=== PATIENT | female | born 1990 | race Caucasian/White ===

== ENCOUNTER 2022-10-15 15:29 | Outpatient (CLI) | payer MEDICAID, SELFPAY ==
[2022-10-15 16:24] LABS: hCG Titer Quant., Serum 72 mIU/mL (1-3)
== END 2022-10-15 23:59 | disposition home or self-care (01) ==
PROVIDERS: PCP Family Medicine; Referring Provider Obstetrics & Gynecology; Visit Provider Obstetrics & Gynecology
DX: O26.859 Spotting complicating pregnancy, unspecified trimester (principal)
CPT/HCPCS: 36415; 84702; 86850; 86900; 86901

== ENCOUNTER 2022-10-17 15:30 | Outpatient (CLI) | payer MEDICAID, SELFPAY ==
[2022-10-17 17:03] LABS: hCG Titer Quant., Serum 246 mIU/mL (1-3)
== END 2022-10-17 23:59 | disposition home or self-care (01) ==
LOC: LAB 15:31
PROVIDERS: PCP Family Medicine; Visit Provider Obstetrics & Gynecology
DX: O26.859 Spotting complicating pregnancy, unspecified trimester (principal)
CPT/HCPCS: 36415; 84702

== ENCOUNTER 2022-10-28 09:22 | Emergency (ER) | payer MEDICAID, SELFPAY ==
[2022-10-28 09:26] VITALS: BP 155/86; PULSE 101; RESP 16; TEMP 36.2; O2SAT 100; BMI 52.7
--- NOTE | 2022-10-28 10:29 | EDS_ITS ---
HPI History of Present Illness Chief Complaint: Eye Problem Informant: patient Onset/Context/Timing Location: Left Eye Onset: Yesterday Context: Sudden Onset Timing: Continuous Worsened by: Nothing Relieved by: Nothing Associated Symptoms Associated Symptoms - Eyes: Negative for Burning, Crusting, Drainage, Eyelid swelling, Foreign body sensation, Itching, Matting, Pain, Photophobia or Redness History of injury: No Visual correction: Corrective contact lenses Narrative Narrative: Patient presents with a dilated left pupil that began last night. Patient states her noticed it last night. Patient states that her noticed that her pupil was dilating and chuckie in a pulsating manner. Patient admits to some blurred vision out of her left eye. Patient denies any trauma or foreign body. Patient admits to some dizziness and mild shortness of breath. Patient states nothing makes her symptoms better nothing makes them worse. Patient admits to some nausea but denies any vomiting. Patient states she is but does not know how far along she is. Patient also admits to some urinary frequency and mild headache. PFSH PFS Medical History Exercise-induced asthma Home Medications cephalexin 500 mg capsule 500 mg PO Q6 #12 CAPSULES 10/28/22 [Rx Last Taken Unknown] Allergy/AdvReac Type Severity Reaction Status Date / Time Sulfa (Sulfonamide Allergy Other Verified 10/28/22 09:26 Antibiotics) amoxicillin [From Augmentin] AdvReac Vomiting Verified 10/28/22 09:26 clavulanic acid AdvReac Vomiting Verified 10/28/22 09:26 [From Augmentin] nitrofurantoin AdvReac Vomiting Verified 10/28/22 09:26 [From Macrobid] Family History (Updated 10/25/22 @ 13:44 by Radha Jain) Mother Bleeding disorder lupus anticoagulation Other CAD (coronary artery disease) Surgical History History of tonsillectomy Hx of cholecystectomy Social History adopted: No housing: house number of children: 1 current occupational status: unemployed current occupation: [employer] current occupational exposures/hazards: 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 Smoking Status: Never smoker second hand exposure: Yes alcohol intake: never substance use type: does not use what type of physical activity do you participate in: none seatbelt use: always do you feel safe at home: Yes ROS ROS ED Constitutional Constitutional ED: Denies chills or fever(s) Eyes Eyes: Reports blurry vision left; Denies change in vision ENT ENT ED: Denies rhinorrhea or sore throat Cardiovascular Cardiovascular: Denies chest pain or palpitations Respiratory/Chest Respiratory/Chest: Reports dyspnea; Denies cough Gastrointestinal Gastrointestinal: Reports nausea; Denies vomiting Genitourinary Genitourinary ED: Reports urinary frequency; Denies dysuria or hematuria Musculoskeletal Musculoskeletal: Denies back pain or neck pain Integumentary Denies abscess or rash Neurologic Neurologic: Reports headache(s); Denies weakness Allergic/Immunologic Allergic/Immunologic ED: Denies mouth swelling or urticaria EXAM Physical Exam Const Vital Signs: 10/28/22 09:26 10/28/22 09:39 Temperature 97.1 F L Temperature Source Temporal Pulse Rate 101 H Respiratory Rate 16 Respiratory Effort Normal Non-Labored Respiratory Pattern Normal Blood Pressure 155/86 H Blood Pressure Mean 109 Pulse Ox 100 Oxygen Delivery Method Room Air Positive well nourished, well developed and obese General Appearance ED: well developed and NAD Nutritional Appearance: obese HEENT Reports moist mucous membranes Eyes Eyes Narrative: Pupils are equal, round, and reactive to light bilaterally. Extraocular muscles are intact. Funduscopic examination was benign. There are no foreign bodies visualized. Conjunctiva was clear. Neck supple and no JVD Resp normal respiratory effort and clear to auscultation bilaterally Cardio regular rate, regular rhythm and no murmurs GI normal to inspection, nondistended, normoactive bowel sounds and non-tender Palpation: soft Extremity normal to inspection General Extremety ED: Negative for edema or tenderness General Extremity: Negative for edema Neuro oriented x3, CN's II-XII intact bilaterally and no sensory deficits noted Sensorium / Orientation: alert Motor Exam: strength 5/5 throughout Psych mental status grossly normal Skin no rashes or lesions noted MDM MDM MDM Narrative Medical decision making narrative: Patient was given IV fluids here. PA and lateral chest x-ray was obtained. There are 2 views. On my interpretation, lung romero are clear. There is normal cardiac silhouette. Bony thorax is normal. There is no acute process noted. Radiologist also interpreted the x-ray and agrees. CBC shows a mild anemia with a hemoglobin of 11.2 and hematocrit of 35.6. Comprehensive metabolic profile was essentially within normal limits. Urinalysis showed a leukocyte esterases of 500 with 10-25 white blood cells and 3+ bacteria. Urine culture was performed. Patient was given a dose of Keflex here. Patient was given a prescription for Keflex. Patient was instructed to follow-up with her TUTOR COORDINATOR in 3 to 5 days. Patient was also instructed to follow-up with her primary care physician in 5 to 7 days. Patient understood and was agreeable with the plan. All questions were answered. Discharge Plan Triage Chief Complaint: Eye Problem ED Provider: Calvin Gardner Dx/Rx/DC Orders Clinical Impression: Visual disturbance, , Urinary tract infection Instructions: ED Cystitis Female Adult, ED Established ... Prescriptions: New cephalexin [cephalexin] 500 mg capsule 500 mg PO Q6 Qty: 12 0RF Primary Care Provider: Roosevelt Knight Referrals: Roosevelt Knight MD [Primary Care Provider] - 3-5 Days Kelley Huston MD [Med Staff - Active Staff] - 3-5 Days Disposition Disposition: Home, Self Care
--- NOTE | 2022-10-28 10:34 | RAD_ITS ---
INDICATION: Dyspnea -- Shield abdomen EXAMINATION/TECHNIQUE: X-RAY - XR Chest 2 Views COMPARISON: None. FINDINGS: LINES/DEVICES: None. LUNGS: No consolidation, edema or effusion. No pneumothorax. MEDIASTINUM AND CARDIOVASCULAR STRUCTURES: Cardiac silhouette not enlarged. Central airways and mediastinal contour are unremarkable. BONES AND SOFT TISSUES: Unremarkable. RAD/Chest PA and Lateral IMPRESSION: No radiographic evidence of acute cardiopulmonary disease. Electronically Signed: Xin Campbell MD at 11:03 EST ,
[2022-10-28 11:00] LABS: Absolute Neutrophil Count 7.4 X10^3/uL (2.0-7.7); Basophil# 0.03 X10^3/uL; Basophil% 0.3 % (0-1); Eosinophil# 0.12 X10^3/uL; Eosinophils% 1.3 % (0-5); Hematocrit 35.6 % (37-47); Hemoglobin 11.2 g/dL (12.0-15.0); Lymphocyte % 16.7 % (19-41); Mean Corp Hgb Conc 31.5 g/dL (32-36); Mean Corpuscular Hgb 26.3 pg (27.0-32.0); Mean Corpuscular Volume 83.6 fL (81-99); Mean Platelet Vol. 10.9 fl (6.2-12.0); Monocyte# 0.42 X10^3/uL; Monocyte% 4.4 % (0-10); NRBC Flagged by Analyzer 0 % (0-5); Neutrophil # 7.39 X10^3/uL (2.7-7.7); Neutrophil % 77.1 % (47-70); Platelet Count 266 K/mm3 (150-450); RBC Distribution Width CV 14.9 % (11.6-14.6); RBC Distribution Width SD 45.1 fl (35.1-43.9); Red Blood Count 4.26 M/mm3 (4.2-5.4); White Blood Count 9.6 K/mm3 (4.4-11.0)
[2022-10-28 11:12] LABS: ALB/GLOB Ratio 0.8 RATIO (0.9-2.4); AST(SGOT) 15 U/L (15-37); Alanine Aminotransfer ALT/SGPT 25 U/L (13-56); Alkaline Phosphatase 68 U/L (45-117); Anion Gap 7 (5-15); BUN 8 mg/dL (7-18); BUN/Creat Ratio 11.9 RATIO (10-20); Calcium,Total 8.6 mg/dL (8.5-10.1); Chloride 106 mmol/L (98-107); Creatinine, Serum 0.67 mg/dL (0.55-1.02); EST Glomerular Filtration Rate 109 mL/min (>60); Est Glom Filt Rate - Afr Amer 131 mL/min (>60); Estimated Creatinine Clearance 109.47 ml/min; Glucose 137 mg/dL (74-106); Potassium 3.9 mmol/L (3.5-5.1); Sodium Level 138 mmol/L (136-145)
[2022-10-28 11:51] LABS: Mucous, Urine 0 SEEN /hpf (<or=2+); Red Blood Cells-Urine 0 SEEN /hpf (0-5)
[2022-10-28 11:55] LABS: Color, Urine Yellow (Yellow); Glucose, Dipstick Normal (Normal); Ketone-Dipstick 5 mg/dl (Negative); Leukocyte Esterase-Dipstick 500 /ul (Negative); Nitrite-Dipstick Negative (Negative); Occult Blood-Urine 10 /ul (Negative); Protein-Dipstick Negative (Negative); Urine Bilirubin Dipstick Negative (Negative); Urine Clarity Sl. Cloudy (Clear); Urine Urobilinogen Normal (Normal)
[2022-10-28 12:24] LABS: Bacteria 3+ /hpf (None Seen); Squamous Epithelial Cells - UA 5-10 SEEN /hpf (5-10); White Blood Cells 10-25 SEEN /hpf (0-5)
[2022-10-28] MEDS: 0.9% Normal Saline 1,000 ML 1000 ML IV (12:33)
[2022-10-28 13:08] VITALS: BP 150/92; PULSE 94; RESP 18; O2SAT 100
[2022-10-28] MEDS: Cephalexin 250 MG Capsule 500 MG PO (13:10)
== END 2022-10-28 13:29 | disposition home or self-care (01) ==
PROVIDERS: Emergency Provider Emergency Medicine; PCP Family Medicine; Visit Provider Emergency Medicine
DX: O23.40 Unspecified infection of urinary tract in pregnancy, unspecified trimester (principal); R06.02 Shortness of breath; H53.9 Unspecified visual disturbance; R11.0 Nausea; R42 Dizziness and giddiness; Z97.3 Presence of spectacles and contact lenses; O99.210 Obesity complicating pregnancy, unspecified trimester; O99.891 Other specified diseases and conditions complicating pregnancy
CPT/HCPCS: 71046; 80053; 81001; 85025; 87086; 87088; 96360; 99284; J7030; A4216

== ENCOUNTER 2022-11-01 12:03 | Emergency (ER) | payer MEDICAID, SELFPAY ==
[2022-11-01 12:04] VITALS: BP 134/67; PULSE 94; RESP 18; TEMP 36.6; O2SAT 99; BMI 52.4
--- NOTE | 2022-11-01 12:58 | US_ITS ---
STUDY: FIRST TRIMESTER OBSTETRICAL ULTRASOUND REASON FOR EXAM: Female, 32 years old Vaginal Bleeding LMP: 09/06/2022. TECHNIQUE: Transabdominal and Transvaginal TECHNICAL QUALITY: Adequate. PRIOR ULTRASOUND: None. FINDINGS: There is visualization of a single gestational sac in a normal intrauterine position. The mean sac diameter (MSD) measures 1.41 cm, indicating an estimated gestational age (EGA) of 6 weeks, 2 days. The gestational sac shape is within normal limits. There is a visualized yolk sac. The yolk sac measures 3.8 mm. The placenta is non-visualized. There is visualization of a live embryo. The crown-rump length (CRL) measures 5.2 mm, indicating an estimated gestational age (EGA) of 6 weeks, 3 days. There is demonstrated cardiac activity with a heart rate of 123 bpm. The estimated gestation age (EGA) by LMP is 8 weeks, 0 days. The estimated date of delivery (SLY) by LMP is 06/13/2023. The estimated gestation age (EGA) by US is 6 weeks, 3 days. The estimated date of delivery (SLY) by US is 06/24/2023. The uterus measures 12.4 cm x 6.8 cm x 5.4 cm. There is a 1.8 cm x 2 cm x 1.5 cm uterine fibroid. The cervix is closed. The right ovary was not visualized. The left ovary measures 1.5 cm x 1.6 cm x 1.5 cm. There is no left ovarian cyst. There is no visualized left adnexal mass or complex lesion. There is no fluid in the cul de sac. US/Init OB < 14Wks US IMPRESSION: Single live intrauterine gestation with a mean gestational age of 6 weeks and 3. Small uterine fibroid. Electronically Signed: Ramu Gaemz MD at 14:06 EST ,
--- NOTE | 2022-11-01 12:59 | EDS_ITS ---
HPI HPI - Female History of Present Illness Chief Complaint: Vag Bld, Preg Narrative Narrative: 32-year-old female, G3, P1 at approximately 4 to 6 weeks gestation states that she had a blood test drawn around gi, few weeks ago which showed that she was possibly 2 to 3 weeks . This morning just after midnight she began having pelvic cramping and vaginal bleeding. While her vaginal bleeding has subsided and almost stopped, she presents because she wants to make sure that everything is okay down there. She does not have an appointment with an ENVIRONMENTAL HEALTH PHYSICIAN, Dr. Kelley Huston for few weeks. She states she has not had a confirmatory ultrasound. PFSH PFS Medical History Exercise-induced asthma Home Medications cephalexin 500 mg capsule 500 mg PO Q6 #12 CAPSULES 10/28/22 [Rx Last Taken Unknown] ondansetron 4 mg disintegrating tablet 4 mg PO Q4H PRN nausea and vomiting #60 tabs 10/31/22 [Rx Last Taken Unknown] Allergy/AdvReac Type Severity Reaction Status Date / Time Sulfa (Sulfonamide Allergy Other Verified 11/01/22 12:04 Antibiotics) amoxicillin [From Augmentin] AdvReac Vomiting Verified 11/01/22 12:04 clavulanic acid AdvReac Vomiting Verified 11/01/22 12:04 [From Augmentin] nitrofurantoin AdvReac Vomiting Verified 11/01/22 12:04 [From Macrobid] Family History Mother Bleeding disorder lupus anticoagulation Other CAD (coronary artery disease) Surgical History History of tonsillectomy Hx of cholecystectomy Social History adopted: No housing: house number of children: 1 current occupational status: unemployed current occupation: [employer] current occupational exposures/hazards: 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 HEENT: No sore throat. No neck pain. No loss of vision. No rhinorrhea. Cardiovascular: No chest pain. No palpitations. No pedal edema. Respiratory: No cough, no shortness of breath. Abdominal: No abdominal pain. No nausea. No vomiting. Genitourinary: No dysuria. No hematuria. Being treated for UTI, diagnosed Saturday. Positive vaginal bleeding-almost resolved. Positive pelvic cramping. Musculoskeletal: No myalgias. No arthralgias. Neurologic: No headaches. No dizziness. No lightheadedness. Skin: No rash. No change in color. Psychiatric: No depression. No anxiety. EXAM Physical Exam Narrative Exam Narrative: Afebrile. Vital signs noted. HEENT: Normocephalic. Atraumatic. PERRL, EOMI. Neck soft and supple. No point tenderness or step off. Cardiovascular: Regular rate and rhythm. No murmurs, rubs, or gallops appreciated. Respiratory: No tachypnea. Lungs clear to auscultation bilaterally. Gastrointestinal: Abdomen soft, nontender, with normoactive bowel sounds. No rebound or guarding. Neurological: Awake. Alert. Nonfocal, nonlateralizing. Skin: No rash. Normal color. No pallor. Musculoskeletal: No pedal edema. Full range of motion extremities. Const Vital Signs: 11/01/22 12:04 11/01/22 14:03 Temperature 97.8 F Temperature Source Temporal Pulse Rate 94 78 Respiratory Rate 18 16 Blood Pressure 134/67 H 134/78 H Blood Pressure Mean 89 96 Pulse Ox 99 98 Oxygen Delivery Method Room Air Room Air MDM MDM MDM Narrative Medical decision making narrative: Comprehensive work-up was pursued. I reviewed her chart. She has a positive of her blood type. Quantitative hCG is elevated 11,529. Hemoglobin slightly low at 11.5. Her ultrasound shows a single live intrauterine gestation with a mean gestational age of 6 weeks and 3 days. There is a small uterine fibroid. I was going to perform a pelvic examination, but patient deferred this, and she states that she only had a small amount of spotting when she wiped after she had a bowel movement, but states that she had wiped the front and is currently being treated for UTI. She did give a sample here that was not grossly bloody. At this point in time, given her normal ultrasound, she was still told that this could be a threatened miscarriage. She will follow-up with her ENVIRONMENTAL HEALTH PHYSICIAN Dr. Kelley Huston as scheduled. She will continue vitamins. She will finish off her antibiotics that she received on Saturday. Disposition is discharged home in stable condition. Return instructions were reviewed. Lab Data Attestation: I reviewed the patient's lab results. Labs: Laboratory Results - last 24 hr 11/01/22 11/01/22 12:45 12:45 WBC 9.6 RBC 4.18 L Hgb 11.5 L Hct 35.4 L MCV 84.7 MCH 27.5 MCHC 32.5 RDW Std Deviation 44.9 H RDW Coeff of Shana 14.6 Plt Count 286 MPV 11.7 Immature Gran % (Auto) 0.200 Neut % (Auto) 75.8 H Lymph % (Auto) 17.9 L [place] % (Auto) 5.3 Eos % (Auto) 0.7 Baso % (Auto) 0.1 Absolute Neuts (auto) 7.3 Absolute Lymphs (auto) 1.72 Nucleated RBC % 0 HCG, Quant [id number] H Radiography Diagnostic Testing: Clinical Impression(s) from Imaging Studies Obstetrics Ultrasound 11/01/22 12:58 IMPRESSION: Single live intrauterine gestation with a mean gestational age of 6 weeks and 3. Small uterine fibroid. Electronically Signed: Ramu Gamez MD at 14:06 EST Reading Location ID and State: [address] [place] [address] , Service support , Discharge Plan Triage Chief Complaint: Vag Bld, Preg ED Provider: Darryn Joaquin Dx/Rx/DC Orders Clinical Impression: , Threatened miscarriage Instructions: ED Possible Miscarriage ..., ED Established ... Prescriptions: No Action cephalexin [cephalexin] 500 mg capsule 500 mg PO Q6 Qty: 12 0RF ondansetron 4 mg tablet,disintegrating 4 mg PO Q4H PRN (Reason: nausea and vomiting) Qty: 60 2RF Primary Care Provider: Roosevelt Knight Referrals: Roosevelt Knight MD [Primary Care Provider] - Kelley Huston MD [Med Staff - Active Staff] - Keep Art appointment Disposition Disposition: Home, Self Care
[2022-11-01 13:24] LABS: Absolute Lymphocyte Count 1.72 X10^3/uL (0.83-4.51); Absolute Neutrophil Count 7.3 X10^3/uL (2.0-7.7); Basophil# 0.01 X10^3/uL; Basophil% 0.1 % (0-1); Eosinophil# 0.07 X10^3/uL; Eosinophils% 0.7 % (0-5); Hematocrit 35.4 % (37-47); Hemoglobin 11.5 g/dL (12.0-15.0); Lymphocyte # 1.72 X10^3/ul (0.83-4.51); Lymphocyte % 17.9 % (19-41); Mean Corp Hgb Conc 32.5 g/dL (32-36); Mean Corpuscular Hgb 27.5 pg (27.0-32.0); Mean Corpuscular Volume 84.7 fL (81-99); Mean Platelet Vol. 11.7 fl (6.2-12.0); Monocyte# 0.51 X10^3/uL; Monocyte% 5.3 % (0-10); NRBC Flagged by Analyzer 0 % (0-5); Neutrophil # 7.26 X10^3/uL (2.7-7.7); Neutrophil % 75.8 % (47-70); Platelet Count 286 K/mm3 (150-450); RBC Distribution Width CV 14.6 % (11.6-14.6); RBC Distribution Width SD 44.9 fl (35.1-43.9); Red Blood Count 4.18 M/mm3 (4.2-5.4); White Blood Count 9.6 K/mm3 (4.4-11.0)
[2022-11-01 14:03] VITALS: BP 134/78; PULSE 78; RESP 16; O2SAT 98
[2022-11-01 14:12] LABS: hCG Titer Quant., Serum 11529 mIU/mL (1-3)
[2022-11-01 15:03] VITALS: BP 128/64; PULSE 72; RESP 16; TEMP 36.6; O2SAT 100
== END 2022-11-01 15:11 | disposition home or self-care (01) ==
PROVIDERS: Emergency Provider Emergency Medicine; PCP Family Medicine; Visit Provider Emergency Medicine
DX: O20.0 Threatened abortion (principal); O99.891 Other specified diseases and conditions complicating pregnancy; O34.11 Maternal care for benign tumor of corpus uteri, first trimester; D25.9 Leiomyoma of uterus, unspecified; Z3A.01 Less than 8 weeks gestation of pregnancy
CPT/HCPCS: 76801; 84702; 85025; 99285; A4216

== ENCOUNTER → 2022-11-09 | Outpatient (CLI) | payer MEDICAID, SELFPAY ==
[2022-11-13 03:06] LABS: Chlamydia By Nucleic Acid AMP Negative (Negative)
[2022-11-13 12:45] LABS: Gonococcus By Nucleic Acid AMP Negative (Negative)
== END | disposition home or self-care (01) ==
PROVIDERS: PCP Family Medicine; Visit Provider Obstetrics & Gynecology
DX: Z34.90 Encounter for supervision of normal pregnancy, unspecified, unspecified trimester (principal)
CPT/HCPCS: 87086; 87088; 87491; 87591

== ENCOUNTER → 2022-12-05 | Outpatient (CLI) | payer MEDICAID, SELFPAY ==
--- NOTE | 2022-12-05 13:00 | US_ITS ---
INDICATION: viability -- HX OF PREVIOUS ED VISIT WITH UTI AND VAG BLEEDING- NO CURRENT BLEEDING EXAMINATION: Ultrasound US OB Transvaginal TECHNIQUE: Transabdominal pelvic ultrasound was performed. Grayscale, spectral waveform, and color flow Doppler evaluation of the adnexa. COMPARISON: None. LMP: [Unknown Beta-hCG: Unknown FINDINGS: UTERUS: 13.1 x 9.9 x 7.9 cm. Small fibroid measuring 1.8 x 1.6 x 1.2 cm. Probable small subchorionic bleed measuring 1.6 x 1.4 x 2.6 cm. RIGHT OVARY: 2.9 x 2.7 x 2 cm. Normal. LEFT OVARY: 3.2 x 2.6 x 2.9 cm. Cyst measuring 1.8 x 1.7 x 1.5 cm is likely corpus luteum. FREE FLUID: None. INTRAUTERINE GESTATIONAL SAC(s) (size/shape): Single. Size (Mean sac diameter) and shape. YOLK SAC: Identified POLE: Identified CRL 4.9 cm. ESTIMATED GESTATION AGE: 11 weeks 4 days. HEART MOTION: 165 bpm. PLACENTA: Posterior. US/Transvaginal w/Preg US IMPRESSION: Viable intrauterine gestation approximately 11 weeks 4 days gestational age with probable small subchorionic hemorrhage. Incidental finding of small intrauterine fibroid Small left ovarian cyst likely corpus luteum.. Electronically Signed: Winston Wu MD at 17:40 EST ,
== END | disposition home or self-care (01) ==
PROVIDERS: PCP Family Medicine; Referring Provider Obstetrics & Gynecology; Visit Provider Obstetrics & Gynecology
DX: Z34.81 Encounter for supervision of other normal pregnancy, first trimester (principal); Z3A.11 11 weeks gestation of pregnancy; Z31.430 Encounter of female for testing for genetic disease carrier status for procreative management
CPT/HCPCS: 76817

== ENCOUNTER 2022-12-07 10:41 | Outpatient (CLI) | payer MEDICAID, SELFPAY ==
[2022-12-07 11:15] LABS: Absolute Lymphocyte Count 1.63 X10^3/uL (0.83-4.51); Absolute Neutrophil Count 7.3 X10^3/uL (2.0-7.7); Basophil# 0.01 X10^3/uL; Basophil% 0.1 % (0-1); Eosinophil# 0.04 X10^3/uL; Eosinophils% 0.4 % (0-5); Hematocrit 35.2 % (37-47); Hemoglobin 11.1 g/dL (12.0-15.0); Lymphocyte # 1.63 X10^3/ul (0.83-4.51); Lymphocyte % 17.4 % (19-41); Mean Corp Hgb Conc 31.5 g/dL (32-36); Mean Corpuscular Hgb 26.2 pg (27.0-32.0); Mean Corpuscular Volume 83.2 fL (81-99); Monocyte# 0.33 X10^3/uL; Monocyte% 3.5 % (0-10); NRBC Flagged by Analyzer 0 % (0-5); Neutrophil # 7.31 X10^3/uL (2.7-7.7); Neutrophil % 78.2 % (47-70); Platelet Count 316 K/mm3 (150-450); RBC Distribution Width SD 42.6 fl (35.1-43.9); Red Blood Count 4.23 M/mm3 (4.2-5.4); White Blood Count 9.4 K/mm3 (4.4-11.0)
[2022-12-07 11:41] LABS: Glucose Challenge Gest 1H 50g 181 mg/dL (70-140)
[2022-12-07 11:48] LABS: NATERA MAILED SPECIMEN
[2022-12-07 12:24] LABS: HIV - WCH Non-Reactive (Nonreactive); Hepatitis B Surface Antigen Non-Reactive (Nonreactive); Hepatitis C Antibody Non-Reactive (Nonreactive); Rubella IgG Reactive (Nonreactive); Syphilis Antibodies Non-reactive
== END 2022-12-07 23:59 | disposition home or self-care (01) ==
PROVIDERS: Obstetrics & Gynecology; PCP Family Medicine; Referring Provider Obstetrics & Gynecology; Visit Provider Obstetrics & Gynecology
DX: Z31.430 Encounter of female for testing for genetic disease carrier status for procreative management (principal); O99.210 Obesity complicating pregnancy, unspecified trimester; Z3A.00 Weeks of gestation of pregnancy not specified
CPT/HCPCS: 36415; 82950; 85025; 86703; 86762; 86780; 86803; 86850; 86900; 86901; 87340

== ENCOUNTER 2022-12-26 16:29 | Emergency (ER) | payer MEDICAID, SELFPAY ==
[2022-12-26 16:30] VITALS: BP 135/68; PULSE 106; RESP 16; TEMP 36.6; O2SAT 98; BMI 46.9
--- NOTE | 2022-12-26 16:55 | US_ITS ---
STUDY: SECOND AND THIRD TRIMESTER OBSTETRICAL ULTRASOUND - LIMITED REASON FOR EXAM: Female, 32 years old. vaginal bleeding PRIOR ULTRASOUND: 12.05.22. TECHNIQUE: Transvaginal TECHNICAL QUALITY: Adequate. FINDINGS: There is a single intrauterine fetus. The fetus is in a breech presentation. There is demonstrated cardiac activity with a heart rate of 166 bpm. There is a normal amniotic fluid volume. The largest amniotic fluid pocket measures 6.1 cm. The placenta is posterior with a marginal previa. There are Grade 0 placental changes. The cervix measures cm in length: 3.1. BIOMETRY: BPD: 28 mm: 15 weeks, 1 days HC: 106 mm: 15 weeks, 0 days AC: 82 mm: 14 weeks, 4 days FL: 15 mm: 14 weeks, 3 days CI: 84 FL/AC: 18.5 FL/BPD: 63 HC/AC: 1.3 age by current US: 14 weeks, 5 days. SLY by current US: 7.28.23. Estimated weight: 100 grams, +/- 15 grams, 32 %. Age by LMP: 14 weeks, 4 days. SLY by LMP: 7.29.23. US/OB Limited With Biometrics IMPRESSION: There is a single live intrauterine with a heart rate of 166 bpm. The placenta is posterior with a marginal previa. Electronically Signed: Jacques Villa MD at 18:35 EST ,
--- NOTE | 2022-12-26 16:56 | EDS_ITS ---
HPI HPI - Female History of Present Illness Chief Complaint: Vag Bld, Preg Narrative Narrative: 32-year-old female A1 currently about 14-1/2 weeks presenting with vaginal bleeding. She states has had this problem throughout her . She states her blood type is a positive. Patient was seen by her ANCILLARY SERVICES MANAGER THERAPY previously for this issue. Today she states she had some spotting and she has been little constipated so she was straining to have a bowel movement and noticed there was more blood in the toilet than it had been. She does admit to some pretty on and off spotting over the course of the last few weeks she states this started about 11 weeks. She does not think this was in her stool. [facility] Medical History Exercise-induced asthma Home Medications ondansetron 4 mg disintegrating tablet 4 mg PO Q4H PRN nausea and vomiting #60 tabs 12/07/22 [Rx Last Taken Unknown] blood sugar diagnostic (Blood Glucose Test strips) #50 ea 12/10/22 [Rx Last Taken Unknown] blood-glucose meter #1 ea 12/10/22 [Rx Last Taken Unknown] lancets #100 ea 12/10/22 [Rx Last Taken Unknown] cephalexin 500 mg capsule 500 mg PO Q12 #14 CAPSULES 12/26/22 [Rx Last Taken Unknown] Allergy/AdvReac Type Severity Reaction Status Date / Time Sulfa (Sulfonamide Allergy Other Verified 12/26/22 16:30 Antibiotics) amoxicillin [From Augmentin] AdvReac Vomiting Verified 12/26/22 16:30 clavulanic acid AdvReac Vomiting Verified 12/26/22 16:30 [From Augmentin] nitrofurantoin AdvReac Vomiting Verified 12/26/22 16:30 [From Macrobid] Family History Mother Bleeding disorder lupus anticoagulation Other CAD (coronary artery disease) Surgical History History of tonsillectomy Hx of cholecystectomy Social History adopted: No housing: house number of children: 1 current occupational status: unemployed current occupation: [employer] current occupational exposures/hazards: 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 Smoking Status: Never smoker second hand exposure: Yes alcohol intake: never substance use type: does not use what type of physical activity do you participate in: none seatbelt use: always do you feel safe at home: Yes ROS ROS ED Constitutional Constitutional ED: Denies chills or fever(s) Eyes Eyes: Denies change in vision ENT ENT ED: Denies ear pain or rhinorrhea Cardiovascular Cardiovascular: Denies chest pain or palpitations Respiratory/Chest Respiratory/Chest: Denies cough or dyspnea Gastrointestinal Gastrointestinal: Reports constipation; Denies nausea or vomiting Genitourinary Genitourinary ED: Denies dysuria or hematuria Musculoskeletal Musculoskeletal: Denies arthralgias Integumentary Denies abscess or Abrasions Neurologic Neurologic: Denies headache(s) or paresthesias Psychiatric Psychiatric: Denies anxiety or depression Endocrine Endocrinology: Denies heat intolerance or polydipsia Hematologic/Lymphatic Hematologic/Lymphatic: Denies easy bleeding or easy bruising EXAM Physical Exam Const Vital Signs: 12/26/22 16:30 12/26/22 19:31 Temperature 97.9 F Temperature Source Temporal Pulse Rate 106 H Respiratory Rate 16 16 Blood Pressure 135/68 H Blood Pressure Mean 90 Pulse Ox 98 96 Oxygen Delivery Method Room Air Positive well nourished General Appearance ED: NAD; Negative for pallor HEENT Reports moist mucous membranes Negative for trauma Eyes PERRL and EOMs intact bilaterally General Eye ED: Negative for pale conjunctiva or scleral icterus Neck No no lymphadenopathy Resp No normal respiratory effort and No clear to auscultation bilaterally Cardio regular rhythm Rate: tachycardic GI Auscultation: normoactive bowel sounds Extremity normal to inspection Neuro oriented x3 and CN's II-XII intact bilaterally Sensorium / Orientation: alert Motor Exam: strength 5/5 throughout Psych Mood & Affect: anxious Skin no rashes or lesions noted and no wounds General Skin Exam: Negative for jaundice or pallor MDM MDM MDM Narrative Medical decision making narrative: Patient presenting with vaginal bleeding during . She is already been evaluated for this via her ANCILLARY SERVICES MANAGER THERAPY and in the emergency room. She is a positive blood type. She does not require RhoGAM. She does admit to a little bit of crampy pain. She believes this is due to constipation and this is why she was straining to have a bowel movement today. She noted more blood in the toilet than usual and this has been going on since about the 11th week. hCG quant is 24,587. Urinalysis consistent with UTI. Urine culture was sent and she was started on Keflex. Transvaginal ultrasound shows live intrauterine with a heart rate of 166. The placenta is posterior with a marginal pre via. This was discussed with Dr. Alaniz who is on-call. She recommended that the patient be mostly bedrest. No sexual intercourse. No heavy lifting. She will try to see her in office tomorrow. Impression: 1. Threatened miscarriage 2. Marginal placenta previa Lab Data Attestation: I reviewed the patient's lab results. Labs: Laboratory Results - last 24 hr 12/26/22 12/26/22 17:27 17:27 HCG, Quant [id number] H Urine Color Yellow Urine Clarity Cloudy Urine pH 6.0 Ur Specific [place] 1.025 Urine Protein 100 H Urine Glucose (UA) Normal Urine Ketones 15 H Urine Occult Blood 50 H Urine Nitrite Positive H Urine Bilirubin Negative Urine Urobilinogen 1 H Ur Leukocyte Esterase 500 H Urine RBC Cancelled Urine WBC Cancelled Ur Squamous Epith Cells Cancelled Ur Transition Epith Cell Cancelled Ur Renal Epithelial Cell Cancelled Calcium Oxalate Crystal Cancelled Uric Acid Crystals Cancelled Triple Phos Crystals Cancelled Other Crystals Cancelled Amorphous Sediment Cancelled Urine Bacteria Cancelled Hyaline Casts Cancelled Fine Granular Casts Cancelled Coarse Granular Casts Cancelled Waxy Casts Cancelled RBC Casts Cancelled WBC Casts Cancelled Urine Mucus Cancelled Urine Trichomonas Cancelled Urine Yeast Cancelled Radiography Diagnostic Testing: Clinical Impression(s) from Imaging Studies Obstetrics Ultrasound 12/26/22 16:55 IMPRESSION: There is a single live intrauterine with a heart rate of 166 bpm. The placenta is posterior with a marginal previa. Electronically Signed: Jacques Villa MD at 18:35 EST , Discharge Plan Triage Chief Complaint: Vag Bld, Preg ED Provider: Rogelio Coburn Dx/Rx/DC Orders Instructions: Placenta Previa, ED Possible Miscarriage ..., ED Cystitis Female Adult Prescriptions: New cephalexin 500 mg capsule 500 mg PO Q12 Qty: 14 0RF No Action ondansetron 4 mg tablet,disintegrating 4 mg PO Q4H PRN (Reason: nausea and vomiting) Qty: 60 2RF (DME) blood-glucose meter Misc See Rx Instructions .ROUTE .MEDSUPPLY Qty: 1 0RF Rx Instructions: As directed- Test fasting and 2 hours after meals (DME) lancets Misc See Rx Instructions .ROUTE .MEDSUPPLY Qty: 100 12RF Rx Instructions: As directed testing 4 times per day (DME) Blood Glucose Test Strip See Rx Instructions .Route Qty: 50 12RF Rx Instructions: As directed 4 times per day Primary Care Provider: Roosevelt Knight Referrals: Roosevelt Knight MD [Primary Care Provider] - Alesia Bhatt DO [Med Staff - Active Staff] - 1 Day Disposition Disposition: Home, Self Care Discharge Date/Time: 12/26/22 19:31
[2022-12-26 18:12] LABS: Color, Urine Yellow (Yellow); Glucose, Dipstick Normal (Normal); Ketone-Dipstick 15 mg/dl (Negative); Leukocyte Esterase-Dipstick 500 /ul (Negative); Nitrite-Dipstick Positive (Negative); Occult Blood-Urine 50 /ul (Negative); Protein-Dipstick 100 mg/dl (Negative); Specific Gravity, Urine 1.025 (1.002-1.030); Urine Bilirubin Dipstick Negative (Negative); Urine Clarity Cloudy (Clear); Urine Urobilinogen 1 mg/dl (Normal)
[2022-12-26 18:17] LABS: hCG Titer Quant., Serum 24587 mIU/mL (1-3)
[2022-12-26] MEDS: Cephalexin 250 MG Capsule 500 MG PO (19:22)
[2022-12-26 19:31] VITALS: RESP 16; O2SAT 96
== END 2022-12-26 19:31 | disposition home or self-care (01) ==
PROVIDERS: Emergency Provider Student in an Organized Health Care Education/Training Program; PCP Family Medicine; Visit Provider Student in an Organized Health Care Education/Training Program
DX: O44.30 Partial placenta previa with hemorrhage, unspecified trimester (principal); O20.0 Threatened abortion; Z3A.14 14 weeks gestation of pregnancy
CPT/HCPCS: 76816; 81002; 84702; 87086; 87088; 99283; A4216

== ENCOUNTER → 2022-12-28 | Outpatient (CLI) | payer MEDICAID, SELFPAY ==
[2022-12-28 10:10] VITALS: BP 124/75; PULSE 96; TEMP 35.8; BMI 46.9
[2022-12-28] MEDS: 0.9% NaCl Peripheral Flush Adult/Peds IV ×2 (10:19→10:21)
[2022-12-28] MEDS: Ondansetron 4 MG/2 ML Vial IV (10:21)
[2022-12-28 11:40] VITALS: BP 110/77; PULSE 83; RESP 16; TEMP 36.3
== END | disposition home or self-care (01) ==
LOC: MEDOUTP 09:59
PROVIDERS: PCP Family Medicine; Referring Provider Obstetrics & Gynecology; Visit Provider Obstetrics & Gynecology
DX: E86.0 Dehydration (principal)
CPT/HCPCS: 96372; A4216; J2405

== ENCOUNTER 2023-01-05 08:17 | Emergency (ER) | payer MEDICAID, SELFPAY ==
[2023-01-05 08:18] VITALS: BP 124/76; PULSE 102; RESP 16; TEMP 36.2; O2SAT 99; BMI 46.5
[2023-01-05 08:43] LABS: Mucous, Urine 0 SEEN /hpf (<or=2+)
[2023-01-05 08:56] LABS: Color, Urine Yellow (Yellow); Glucose, Dipstick Normal (Normal); Leukocyte Esterase-Dipstick 500 /ul (Negative); Nitrite-Dipstick Negative (Negative); Occult Blood-Urine 150 /ul (Negative); Protein-Dipstick 30 mg/dl (Negative); Specific Gravity, Urine 1.025 (1.002-1.030); Urine Bilirubin Dipstick Negative (Negative); Urine Clarity Sl. Cloudy (Clear); Urine Urobilinogen 1 mg/dl (Normal)
[2023-01-05 09:04] LABS: Ketone-Dipstick 150 mg/dl (Negative); Red Blood Cells-Urine 0-5 SEEN /hpf (0-5); White Blood Cells 10-25 SEEN /hpf (0-5)
[2023-01-05 09:05] LABS: Bacteria 2+ /hpf (None Seen); Squamous Epithelial Cells - UA 10-25 SEEN /hpf (5-10)
[2023-01-05] MEDS: 0.9% Normal Saline 1,000 ML 1000 ML IV (10:23)
[2023-01-05] MEDS: Ondansetron 4 MG/2 ML Vial IV (10:23)
[2023-01-05 10:24] LABS: Anion Gap 7 (5-15); BUN 7 mg/dL (7-18); BUN/Creat Ratio 12.9 RATIO (10-20); Calcium,Total 9.7 mg/dL (8.5-10.1); Chloride 105 mmol/L (98-107); Creatinine, Serum 0.54 mg/dL (0.55-1.02); EST Glomerular Filtration Rate 139 mL/min (>60); Est Glom Filt Rate - Afr Amer 168 mL/min (>60); Estimated Creatinine Clearance 135.83 ml/min; Glucose 96 mg/dL (74-106); Potassium 3.9 mmol/L (3.5-5.1); Sodium Level 136 mmol/L (136-145)
--- NOTE | 2023-01-05 11:00 | EDS_ITS ---
HPI History of Present Illness Chief Complaint: Constipation Detail of Chief Complaint: Constipation for greater than a week and nausea vomiting x2 days Informant: patient Onset/Context/Timing Onset: Days (Per detailed chief complaint) Context: Gradual Onset Timing: Continuous (With respect to the constipation) and Intermittent (With respect to the nausea and vomiting) Quality: No bowel movement for 9 days and vomiting x7 or 2 days Location: GI Current Severity: Moderate Maximum Severity: Moderate Worsened by: Nothing Relieved by: Nothing Associated Symptoms Associated Symptoms: Lightheadedness, thirst Narrative Narrative: Is a 32-year-old G3, P1 Ab1 female who presents because of constipation. She does endorse dry mouth, thirst and orthostatic dizziness. She states she vomited 7 times yesterday and today. She is not able to keep anything down. She has not had a bowel movement in 9 days. She is flagellated. She is status postcholecystectomy. Patient denies fever, chills night sweats patient denies headache, visual, ocular auditory symptoms. Patient denies cardiac respiratory symptoms. Patient feels bloated and distended. Patient denies urologic symptoms. Patient denies vaginal bleeding. She states she does have a placenta previa and is hesitant to strain. Prior similar symptoms: Yes (He was seen at outside facility and given glycerin suppositories. She has ) Recent Illness/Hospitalization: Yes [facility] Medical History Exercise-induced asthma Gestational diabetes Home Medications ondansetron 4 mg disintegrating tablet 4 mg PO Q4H PRN nausea and vomiting #60 tabs 12/07/22 [Rx Last Taken Unknown] blood sugar diagnostic (Blood Glucose Test strips) #50 ea 12/10/22 [Rx Last Taken Unknown] blood-glucose meter #1 ea 12/10/22 [Rx Last Taken Unknown] lancets #100 ea 12/10/22 [Rx Last Taken Unknown] cephalexin 500 mg capsule 500 mg PO Q12 #14 CAPSULES 12/26/22 [Rx Last Taken Unknown] metformin 500 mg tablet,extended release 24 hr 1,000 mg PO BID #120 tabs 12/28/22 [Rx Last Taken Unknown] prenat.vits,jazmin,buu-blcp-ctjah 1 tab PO DAILY 12/28/22 [History Last Taken Unknown] ondansetron 4 mg disintegrating tablet 4 mg PO Q8H PRN PRN Nausea #10 tabs 01/05/23 [Rx Last Taken Unknown] Allergy/AdvReac Type Severity Reaction Status Date / Time Sulfa (Sulfonamide Allergy Other Verified 01/05/23 08:23 Antibiotics) amoxicillin [From Augmentin] AdvReac Vomiting Verified 01/05/23 08:23 clavulanic acid AdvReac Vomiting Verified 01/05/23 08:23 [From Augmentin] nitrofurantoin AdvReac Vomiting Verified 01/05/23 08:23 [From Macrobid] Family History Mother Bleeding disorder lupus anticoagulation Other CAD (coronary artery disease) Surgical History History of tonsillectomy Hx of cholecystectomy Social History adopted: No housing: house number of children: 1 current occupational status: unemployed 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 Smoking Status: Never smoker second hand exposure: Yes alcohol intake: never substance use type: does not use what type of physical activity do you participate in: none seatbelt use: always do you feel safe at home: Yes ROS ROS ED Constitutional Constitutional ED: Denies chills, fever(s), subjective, sweats or weight loss Eyes Eyes: Denies blurry vision, change in vision or diplopia ENT ENT ED: Denies ear pain, rhinorrhea or sore throat Cardiovascular Cardiovascular: Denies chest pain, palpitations or racing heartbeat Respiratory/Chest Respiratory/Chest: Denies cough, dyspnea or dyspnea on exertion Gastrointestinal Gastrointestinal: Reports abdominal pain, constipation, nausea and vomiting; Denies diarrhea or melena Genitourinary Genitourinary ED: Reports dysuria, hematuria and urinary frequency Musculoskeletal Musculoskeletal: Denies arthralgias, back pain, myalgias or neck pain Integumentary Denies Abrasions or rash Neurologic Neurologic: Denies headache(s) or paresthesias Psychiatric Psychiatric: Denies anxiety or depression Endocrine Endocrinology: Reports polydipsia; Denies cold intolerance, heat intolerance or polyuria Hematologic/Lymphatic Hematologic/Lymphatic: Reports systems reviewed and no addt'l complaints, except as documented EXAM Physical Exam Const Vital Signs: 01/05/23 08:18 Temperature 97.1 F L Temperature Source Temporal Pulse Rate 102 H Respiratory Rate 16 Blood Pressure 124/76 H Blood Pressure Mean 92 Pulse Ox 99 Oxygen Delivery Method Room Air Positive well nourished, well developed and obese Constitutional Narrative: Patient appears uncomfortable. General Appearance ED: well developed, NAD and pallor; Negative for cyanotic or diaphoretic Nutritional Appearance: obese HEENT Reports dry mucous membranes HEENT Narrative: Head is atraumatic normocephalic. Ears normal. TMs normal. Nares patent. Uvula midline. Posterior pharynx is unremarkable. Mouth ED: Yes dry mucous membranes Mouth: dry mucous membranes Eyes PERRL and EOMs intact bilaterally General Eye ED: Negative for pale conjunctiva or scleral icterus Neck no lymphadenopathy, supple and no JVD Chest Wall inspection of chest normal and palpation of chest normal Resp normal respiratory effort and clear to auscultation bilaterally Cardio regular rhythm, S1 normal heart sound, S2 normal heart sound and no murmurs Rate: tachycardic GI normal to inspection, nondistended, normoactive bowel sounds, non-tender, non- distended and no masses; Negative for hepatosplenomegaly GI Narrative: There is slight temp and out of precaution. Back/Spine no CVA tenderness Extremity normal to inspection General Extremety ED: Negative for edema or tenderness General Extremity: Negative for edema Neuro oriented x3, CN's II-XII intact bilaterally and no sensory deficits noted Sensorium / Orientation: alert Psych mental status grossly normal Skin no rashes or lesions noted, no wounds and skin turgor normal General Skin Exam: elasticity normal and pallor; Negative for jaundice MDM MDM MDM Narrative Medical decision making narrative: Clinically patient appears dehydrated. Will obtain urine to assess for urinary tract infection, ketones and specific gravity. BMP was obtained because she has gestational diabetes to assess glucose, CO2 and anion gap as well as electrolytes. Patient did receive 1 L of normal saline wide open. She also received Zofran for her nausea. She has had no vomiting during her ER course. Lab Data Attestation: I reviewed the patient's lab results. Lab results narrative: Basic metabolic panel is normal. Urine is a contaminated specimen. Specific gravity is elevated 1.25. Ketones are positive. There is 10-25 epithelial cells. Labs: Laboratory Results - last 24 hr 01/05/23 01/05/23 08:40 10:00 Sodium 136 Potassium 3.9 Chloride 105 Carbon Dioxide 24.0 Anion Gap 7 BUN 7 Creatinine 0.54 L Estim Creat Clear Calc 135.83 Est GFR (MDRD) Af Amer 168 Est GFR (MDRD) Non-Af 139 BUN/Creatinine Ratio 12.9 Glucose 96 Calcium 9.7 Urine Color Yellow Urine Clarity Sl. Cloudy Urine pH 5.0 Ur Specific [place] 1.025 Urine Protein 30 H Urine Glucose (UA) Normal Urine Ketones 150 A* Urine Occult Blood 150 H Urine Nitrite Negative Urine Bilirubin Negative Urine Urobilinogen 1 H Ur Leukocyte Esterase 500 H Urine RBC 0-5 SEEN Urine WBC 10-25 SEEN Ur Squamous Epith Cells 10-25 SEEN Urine Bacteria 2+ Urine Mucus 0 SEEN Treatment and Re-Evaluation Narrative: Patient was reassessed at 1100. She reports she feels better. Case was discussed with her river transportation worker Dr. Alesia Alaniz. She agrees with treatment plan and follow-up. Discharge Plan Triage Chief Complaint: Constipation ED Provider: Chidi Abbott Dx/Rx/DC Orders Clinical Impression: Nausea and vomiting during , Mitral valve prolapse, Marginal placenta previa, Gestational diabetes, Acute dehydration, Constipation Instructions: ED Vomiting (Adult) Prescriptions: New ondansetron [ondansetron] 4 mg tablet,disintegrating 4 mg PO Q8H PRN PRN (Reason: Nausea) Qty: 10 0RF No Action ondansetron 4 mg tablet,disintegrating 4 mg PO Q4H PRN (Reason: nausea and vomiting) Qty: 60 2RF (DME) blood-glucose meter Misc See Rx Instructions .ROUTE .MEDSUPPLY Qty: 1 0RF Rx Instructions: As directed- Test fasting and 2 hours after meals (DME) lancets Misc See Rx Instructions .ROUTE .MEDSUPPLY Qty: 100 12RF Rx Instructions: As directed testing 4 times per day (DME) Blood Glucose Test Strip See Rx Instructions .Route Qty: 50 12RF Rx Instructions: As directed 4 times per day prenat.vits,jazmin,nkx-hcga-kdmyj Tablet 1 tab PO DAILY metformin 500 mg tablet extended release 24 hr 1,000 mg PO BID Qty: 120 3RF cephalexin 500 mg capsule 500 mg PO Q12 Qty: 14 0RF Primary Care Provider: Roosevelt Knight Referrals: Roosevelt Knight MD [Primary Care Provider] - Alesia Bhatt DO [Med Staff - Active Staff] - 3-5 Days if not improving Activity Restrictions/Additional Instructions: 1. If mag citrate is available drink 10 ounces. 4 hours later drink a glass of MiraLAX. Drink a glass of MiraLAX every hour until you start to have results. 2. If mag citrate is not available drink a glass of MiraLAX every hour until you have results. Disposition Disposition: Home, Self Care
[2023-01-05 12:14] VITALS: RESP 18
== END 2023-01-05 12:15 | disposition home or self-care (01) ==
PROVIDERS: Emergency Provider Emergency Medicine; PCP Family Medicine; Visit Provider Emergency Medicine
DX: O99.619 Diseases of the digestive system complicating pregnancy, unspecified trimester (principal); R11.2 Nausea with vomiting, unspecified; O24.415 Gestational diabetes mellitus in pregnancy, controlled by oral hypoglycemic drugs; O44.20 Partial placenta previa NOS or without hemorrhage, unspecified trimester; Z3A.00 Weeks of gestation of pregnancy not specified; K59.00 Constipation, unspecified; O99.280 Endocrine, nutritional and metabolic diseases complicating pregnancy, unspecified trimester; E86.0 Dehydration; Z79.84 Long term (current) use of oral hypoglycemic drugs
CPT/HCPCS: 80048; 81001; 96361; 96374; 99283; J7030; A4216; J2405

== ENCOUNTER → 2023-01-15 | Outpatient (CLI) | payer MEDICAID, SELFPAY | END | disposition home or self-care (01) | PROVIDERS: PCP Family Medicine; Referring Provider Nurse Practitioner Women's Health; Visit Provider Nurse Practitioner Women's Health | DX: O23.40 Unspecified infection of urinary tract in pregnancy, unspecified trimester (principal); Z3A.00 Weeks of gestation of pregnancy not specified | CPT/HCPCS: 87086; 87088 ==

== ENCOUNTER → 2023-02-08 | Outpatient (CLI) | payer MEDICAID, SELFPAY | END | disposition home or self-care (01) | LOC: LABSPEC 13:57 | PROVIDERS: PCP Family Medicine; Referring Provider Obstetrics & Gynecology; Visit Provider Obstetrics & Gynecology | DX: R35.0 Frequency of micturition (principal) | CPT/HCPCS: 87086; 87088 ==

== ENCOUNTER → 2023-03-05 | Outpatient (CLI) | payer MEDICAID, SELFPAY | END | disposition home or self-care (01) | LOC: LABSPEC 16:35 | PROVIDERS: PCP Family Medicine; Referring Provider Nurse Practitioner Women's Health; Visit Provider Nurse Practitioner Women's Health | DX: R30.0 Dysuria (principal); N89.8 Other specified noninflammatory disorders of vagina | CPT/HCPCS: 87070; 87086; 87088; 87205 ==

== ENCOUNTER → 2023-04-05 | Outpatient (CLI) | payer MEDICAID, SELFPAY ==
[2023-04-05 10:44] LABS: Absolute Lymphocyte Count 1.76 X10^3/uL (0.83-4.51); Absolute Neutrophil Count 8.9 X10^3/uL (2.0-7.7); Basophil# 0.02 X10^3/uL; Basophil% 0.2 % (0-1); Eosinophil# 0.09 X10^3/uL; Eosinophils% 0.8 % (0-5); Hematocrit 34.4 % (37-47); Hemoglobin 10.9 g/dL (12.0-15.0); Lymphocyte # 1.76 X10^3/ul (0.83-4.51); Lymphocyte % 15.6 % (19-41); Mean Corp Hgb Conc 31.7 g/dL (32-36); Mean Corpuscular Hgb 27.4 pg (27.0-32.0); Mean Corpuscular Volume 86.4 fL (81-99); Mean Platelet Vol. 11.7 fl (6.2-12.0); Monocyte# 0.48 X10^3/uL; Monocyte% 4.3 % (0-10); NRBC Flagged by Analyzer 0 % (0-5); Neutrophil % 78.7 % (47-70); Platelet Count 262 K/mm3 (150-450); RBC Distribution Width CV 13.8 % (11.6-14.6); RBC Distribution Width SD 43.3 fl (35.1-43.9); Red Blood Count 3.98 M/mm3 (4.2-5.4); White Blood Count 11.3 K/mm3 (4.4-11.0)
[2023-04-05 11:27] LABS: HIV - WCH Non-Reactive (Nonreactive); Syphilis Antibodies Non-reactive
== END | disposition home or self-care (01) ==
PROVIDERS: PCP Family Medicine; Referring Provider Nurse Practitioner Women's Health; Visit Provider Nurse Practitioner Women's Health
DX: Z34.90 Encounter for supervision of normal pregnancy, unspecified, unspecified trimester (principal); N89.8 Other specified noninflammatory disorders of vagina
CPT/HCPCS: 36415; 85025; 86703; 86780; 87070; 87205

== ENCOUNTER → 2023-04-19 | Outpatient (CLI) | payer MEDICAID, SELFPAY ==
[2023-04-19 11:14] LABS: Protein, Urine (Random) 24.4 mg/dL (<11.9); Protein:Creat Ratio 138 mg/g CRE (0-200)
== END | disposition home or self-care (01) ==
LOC: LABSPEC 10:27
PROVIDERS: PCP Family Medicine; Referring Provider Advanced Practice Midwife; Visit Provider Advanced Practice Midwife
DX: Z34.90 Encounter for supervision of normal pregnancy, unspecified, unspecified trimester (principal)
CPT/HCPCS: 82570; 84156

== ENCOUNTER → 2023-05-10 | Outpatient (CLI) | payer MEDICAID, SELFPAY ==
[2023-05-10 16:13] LABS: Absolute Lymphocyte Count 1.74 X10^3/uL (0.83-4.51); Absolute Neutrophil Count 8.1 X10^3/uL (2.0-7.7); Basophil# 0.02 X10^3/uL; Basophil% 0.2 % (0-1); Eosinophil# 0.05 X10^3/uL; Eosinophils% 0.5 % (0-5); Hematocrit 31.9 % (37-47); Hemoglobin 10.6 g/dL (12.0-15.0); Lymphocyte # 1.74 X10^3/ul (0.83-4.51); Lymphocyte % 16.7 % (19-41); Mean Corp Hgb Conc 33.2 g/dL (32-36); Mean Corpuscular Volume 84.2 fL (81-99); Mean Platelet Vol. 11.9 fl (6.2-12.0); Monocyte# 0.48 X10^3/uL; Monocyte% 4.6 % (0-10); NRBC Flagged by Analyzer 0 % (0-5); Neutrophil # 8.09 X10^3/uL (2.7-7.7); Neutrophil % 77.7 % (47-70); Platelet Count 270 K/mm3 (150-450); RBC Distribution Width CV 14.1 % (11.6-14.6); RBC Distribution Width SD 43.4 fl (35.1-43.9); Red Blood Count 3.79 M/mm3 (4.2-5.4); White Blood Count 10.4 K/mm3 (4.4-11.0)
[2023-05-10 16:29] LABS: ALB/GLOB Ratio 0.6 RATIO (0.9-2.4); AST(SGOT) 12 U/L (15-37); Alanine Aminotransfer ALT/SGPT 15 U/L (13-56); Albumin, Serum 2.6 g/dL (3.2-5.0); Alkaline Phosphatase 122 U/L (45-117); Anion Gap 8 (5-15); BUN 9 mg/dL (7-18); BUN/Creat Ratio 15.2 RATIO (10-20); Calcium,Total 9.5 mg/dL (8.5-10.1); Chloride 107 mmol/L (98-107); Creatinine, Serum 0.59 mg/dL (0.55-1.02); EST Glomerular Filtration Rate 126 mL/min (>60); Est Glom Filt Rate - Afr Amer 152 mL/min (>60); Ferritin 5 ng/mL (8-252); Globulin 4.3 g/dL (2.2-4.2); Glucose 89 mg/dL (74-106); Iron Binding Capacity,Total 495 ug/dL (250-450); Protein, Total 6.9 g/dL (6.4-8.2); Sodium Level 139 mmol/L (136-145)
[2023-05-10 16:30] LABS: Vitamin B12 264 pg/mL (211-911)
== END | disposition home or self-care (01) ==
LOC: LAB 14:32
PROVIDERS: PCP Family Medicine; Visit Provider Obstetrics & Gynecology
DX: R42 Dizziness and giddiness (principal); D64.9 Anemia, unspecified
CPT/HCPCS: 36415; 80053; 82607; 82728; 83550; 85025

== ENCOUNTER → 2023-05-15 | Outpatient (CLI) | payer MEDICAID, SELFPAY ==
[2023-05-15 09:39] LABS: Absolute Lymphocyte Count 2.19 X10^3/uL (0.83-4.51); Absolute Neutrophil Count 7.9 X10^3/uL (2.0-7.7); Basophil# 0.02 X10^3/uL; Basophil% 0.2 % (0-1); Eosinophils% 0.9 % (0-5); Hematocrit 33.8 % (37-47); Hemoglobin 10.5 g/dL (12.0-15.0); Lymphocyte # 2.19 X10^3/ul (0.83-4.51); Lymphocyte % 20.1 % (19-41); Mean Corp Hgb Conc 31.1 g/dL (32-36); Mean Corpuscular Hgb 26.8 pg (27.0-32.0); Mean Corpuscular Volume 86.2 fL (81-99); Monocyte# 0.62 X10^3/uL; Monocyte% 5.7 % (0-10); NRBC Flagged by Analyzer 0 % (0-5); Neutrophil # 7.92 X10^3/uL (2.7-7.7); Neutrophil % 72.6 % (47-70); Platelet Count 273 K/mm3 (150-450); RBC Distribution Width SD 43.4 fl (35.1-43.9); Red Blood Count 3.92 M/mm3 (4.2-5.4); White Blood Count 10.9 K/mm3 (4.4-11.0)
[2023-05-15 09:57] LABS: Protein, Urine (Random) 27.4 mg/dL (<11.9); Protein:Creat Ratio 152 mg/g CRE (0-200)
[2023-05-15 10:01] LABS: ALB/GLOB Ratio 0.6 RATIO (0.9-2.4); AST(SGOT) 11 U/L (15-37); Alanine Aminotransfer ALT/SGPT 14 U/L (13-56); Albumin, Serum 2.5 g/dL (3.2-5.0); Alkaline Phosphatase 121 U/L (45-117); Anion Gap 5 (5-15); BUN 8 mg/dL (7-18); BUN/Creat Ratio 14.7 RATIO (10-20); Calcium,Total 9.3 mg/dL (8.5-10.1); Chloride 109 mmol/L (98-107); Creatinine, Serum 0.54 mg/dL (0.55-1.02); EST Glomerular Filtration Rate 138 mL/min (>60); Est Glom Filt Rate - Afr Amer 167 mL/min (>60); Globulin 4.2 g/dL (2.2-4.2); Glucose 88 mg/dL (74-106); Potassium 3.9 mmol/L (3.5-5.1); Protein, Total 6.7 g/dL (6.4-8.2); Sodium Level 138 mmol/L (136-145)
== END | disposition home or self-care (01) ==
LOC: PAVLAB 09:10
PROVIDERS: PCP Family Medicine; Referring Provider Nurse Practitioner Women's Health; Visit Provider Nurse Practitioner Women's Health
DX: O12.10 Gestational proteinuria, unspecified trimester (principal); Z3A.00 Weeks of gestation of pregnancy not specified
CPT/HCPCS: 36415; 80053; 82570; 84156; 85025

== ENCOUNTER → 2023-05-31 | Outpatient (CLI) | payer MEDICAID, SELFPAY | END | disposition home or self-care (01) | LOC: LABSPEC 16:56 | PROVIDERS: PCP Family Medicine; Referring Provider Advanced Practice Midwife; Visit Provider Advanced Practice Midwife | DX: Z34.90 Encounter for supervision of normal pregnancy, unspecified, unspecified trimester (principal) | CPT/HCPCS: 87081 ==

== ENCOUNTER 2023-06-01 12:05 | Outpatient (CLI) | payer MEDICAID, SELFPAY ==
[2023-06-01] VITALS (13 sets, daily range): BP systolic 117–136; BP diastolic 68–80; PULSE 84–126; O2SAT 97–98; BMI 43.6
[2023-06-01 12:49] LABS: ROM Internal Control Test YES-OK TO RESULT pt. (Internal QC); ROM Patient Test Negative (Negative)
[2023-06-01 12:50] LABS: Record Kit Lot#, ROM+ K1374
--- NOTE | 2023-06-01 13:10 | EKG12_ITS ---
Test Reason : MATERNAL TACHYCARDIA Blood Pressure : / mmHG Vent. Rate : 097 BPM Atrial Rate : 097 BPM P-R Int : 138 ms QRS Dur : 086 ms QT Int : 344 ms P-R-T Axes : 051 -03 021 degrees QTc Int : 436 ms Normal sinus rhythm Normal ECG No previous ECGs available Confirmed by JERED GOLDMAN, TOYIN ([id number]), web content editor YVAN SMITH ([id number]) on 06/04/2023 12:22:32 PM Referred By: Kelley Huston Confirmed By:TOYIN LAWTON MD
[2023-06-01] MEDS: Lactated Ringers 1,000 ML 999 ML IV (13:45)
[2023-06-01 13:47] LABS: Mucous, Urine 0 SEEN /hpf (<or=2+)
[2023-06-01 13:48] LABS: Absolute Lymphocyte Count 1.93 X10^3/uL (0.83-4.51); Absolute Neutrophil Count 8.3 X10^3/uL (2.0-7.7); Basophil# 0.01 X10^3/uL; Basophil% 0.1 % (0-1); Eosinophil# 0.06 X10^3/uL; Eosinophils% 0.6 % (0-5); Hematocrit 31.8 % (37-47); Hemoglobin 10.1 g/dL (12.0-15.0); Lymphocyte # 1.93 X10^3/ul (0.83-4.51); Lymphocyte % 17.8 % (19-41); Mean Corp Hgb Conc 31.8 g/dL (32-36); Mean Corpuscular Hgb 26.5 pg (27.0-32.0); Mean Corpuscular Volume 83.5 fL (81-99); Monocyte# 0.54 X10^3/uL; NRBC Flagged by Analyzer 0 % (0-5); Neutrophil # 8.27 X10^3/uL (2.7-7.7); Neutrophil % 76.2 % (47-70); Platelet Count 264 K/mm3 (150-450); RBC Distribution Width CV 14.3 % (11.6-14.6); RBC Distribution Width SD 43.6 fl (35.1-43.9); Red Blood Count 3.81 M/mm3 (4.2-5.4); White Blood Count 10.8 K/mm3 (4.4-11.0)
[2023-06-01 13:58] LABS: Color, Urine Yellow (Yellow); Glucose, Dipstick Normal (Normal); Ketone-Dipstick 5 mg/dl (Negative); Leukocyte Esterase-Dipstick 500 /ul (Negative); Nitrite-Dipstick Negative (Negative); Occult Blood-Urine 10 /ul (Negative); Protein-Dipstick 15 mg/dl (Negative); Specific Gravity, Urine 1.025 (1.002-1.030); Urine Bilirubin Dipstick Negative (Negative); Urine Clarity Sl. Cloudy (Clear); Urine Urobilinogen Normal (Normal)
[2023-06-01 14:25] LABS: White Blood Cells 25-50 SEEN /hpf (0-5)
[2023-06-01 14:27] LABS: Bacteria 4+ /hpf (None Seen); Red Blood Cells-Urine 0-5 SEEN /hpf (0-5); Squamous Epithelial Cells - UA 25-50 SEEN /hpf (5-10)
--- NOTE | 2023-06-01 18:42 | OB.TRI.PN ---
Progress Notes Date of Service: 06/01/23 Progress Note: Patient presents for triage evaluation secondary to possible PTL, tachycardia FHT: 130 Moderate variability reactive no decelerations category I tracing [place]: no regular Contractions Assessment and plan: false PTL, tachycardia resolved with fluids- from dehydration nl ekg Reactive NST, reassuring maternal and status patient discharged to home to follow-up as scheduled. See problem list details for additional plan information. Laboratory Studies: Laboratory Tests 06/01/23 06/01/23 Range/Units 13:30 12:20 WBC 10.8 (4.4-11.0) K/mm3 RBC 3.81 L (4.2-5.4) M/mm3 Hgb 10.1 L (12.0-15.0) g/dL Hct 31.8 L (37-47) % MCV 83.5 (81-99) fL MCH 26.5 L (27.0-32.0) pg MCHC 31.8 L (32-36) g/dL RDW Std Deviation 43.6 (35.1-43.9) fl RDW Coeff of Shana 14.3 (11.6-14.6) % Plt Count 264 (150-450) K/mm3 MPV 12.0 (6.2-12.0) fl Immature Gran % (Auto) 0.300 (0.0-0.9) % Neut % (Auto) 76.2 H (47-70) % Lymph % (Auto) 17.8 L (19-41) % [place] % (Auto) 5.0 (0-10) % Eos % (Auto) 0.6 (0-5) % Baso % (Auto) 0.1 (0-1) % Absolute Neuts (auto) 8.3 H (2.0-7.7) X10^3/uL Absolute Lymphs (auto) 1.93 (0.83-4.51) X10^3/uL Nucleated RBC % 0 (0-5) % Urine Color Yellow (Yellow) Urine Clarity Sl. Cloudy (Clear) Urine pH 5.0 (5.0 - 8.0) Ur Specific [place] 1.025 (1.002-1.030) Urine Protein 15 H (Negative) mg/dl Urine Glucose (UA) Normal (Normal) mg/dl Urine Ketones 5 H (Negative) mg/dl Urine Occult Blood 10 H (Negative) /ul Urine Nitrite Negative (Negative) Urine Bilirubin Negative (Negative) mg/dL Urine Urobilinogen Normal (Normal) mg/dl Ur Leukocyte Esterase 500 H (Negative) /ul Urine RBC 0-5 SEEN (0-5) /hpf Urine WBC 25-50 SEEN (0-5) /hpf Ur Squamous Epith Cells 25-50 SEEN (5-10) /hpf Urine Bacteria 4+ (None Seen) /hpf Urine Mucus 0 SEEN (<or=2+) /hpf Vag Amniotic Fld Detect Negative (Negative) Charges/Coding Procedures Urinary/Genital [id number]: [id number] non-stress test Interp
== END 2023-06-01 14:45 | disposition home or self-care (01) ==
LOC: WPOUT 12:11 → WP 12:12
PROVIDERS: PCP Family Medicine; Referring Provider Obstetrics & Gynecology; Visit Provider Obstetrics & Gynecology
DX: O99.280 Endocrine, nutritional and metabolic diseases complicating pregnancy, unspecified trimester (principal); O99.891 Other specified diseases and conditions complicating pregnancy; R00.0 Tachycardia, unspecified; Z3A.00 Weeks of gestation of pregnancy not specified; E86.0 Dehydration; O47.9 False labor, unspecified
CPT/HCPCS: 96360; 36415; 59025; 59050; 81001; 84112; 85025; 93005; J7120

== ENCOUNTER 2023-06-10 06:42 | Inpatient (IN) | payer MEDICAID, SELFPAY ==
[2023-06-10] VITALS (25 sets, daily range): BP systolic 97–125; BP diastolic 41–92; PULSE 52–97; RESP 11–17; TEMP 36.5–36.8; O2SAT 88–100; BMI 43.9
[2023-06-10 05:13] LABS: Bedside Glucose 83 mg/dL (74-106)
[2023-06-10] MEDS: Lactated Ringers 1,000 ML 999 ML IV (05:15)
[2023-06-10 05:29] LABS: Mucous, Urine 0 SEEN /hpf (<or=2+)
[2023-06-10 05:30] LABS: Color, Urine Yellow (Yellow); Glucose, Dipstick Normal (Normal); Ketone-Dipstick 50 mg/dl (Negative); Leukocyte Esterase-Dipstick 500 /ul (Negative); Nitrite-Dipstick Negative (Negative); Occult Blood-Urine 150 /ul (Negative); Protein-Dipstick 15 mg/dl (Negative); Urine Clarity Clear (Clear); Urine Urobilinogen Normal (Normal)
[2023-06-10 06:13] LABS: Urine Bilirubin Dipstick 1 mg/dL (Negative)
[2023-06-10 06:18] LABS: Bacteria 1+ /hpf (None Seen); Red Blood Cells-Urine 0-5 SEEN /hpf (0-5); Squamous Epithelial Cells - UA 10-25 SEEN /hpf (5-10); White Blood Cells 25-50 SEEN /hpf (0-5)
[2023-06-10] MEDS: Lactated Ringers 1,000 ML 150 ML IV (06:21)
[2023-06-10 07:19] LABS: Absolute Lymphocyte Count 2.41 X10^3/uL (0.83-4.51); Absolute Neutrophil Count 9.2 X10^3/uL (2.0-7.7); Basophil# 0.02 X10^3/uL; Basophil% 0.2 % (0-1); Eosinophil# 0.07 X10^3/uL; Eosinophils% 0.6 % (0-5); Hematocrit 31.8 % (37-47); Lymphocyte # 2.41 X10^3/ul (0.83-4.51); Lymphocyte % 19.5 % (19-41); Mean Corp Hgb Conc 31.4 g/dL (32-36); Mean Corpuscular Hgb 26.5 pg (27.0-32.0); Mean Corpuscular Volume 84.4 fL (81-99); Mean Platelet Vol. 12.5 fl (6.2-12.0); Monocyte# 0.63 X10^3/uL; Monocyte% 5.1 % (0-10); NRBC Flagged by Analyzer 0 % (0-5); Neutrophil # 9.19 X10^3/uL (2.7-7.7); Neutrophil % 74.1 % (47-70); Platelet Count 263 K/mm3 (150-450); RBC Distribution Width CV 14.1 % (11.6-14.6); RBC Distribution Width SD 43.2 fl (35.1-43.9); Red Blood Count 3.77 M/mm3 (4.2-5.4); White Blood Count 12.4 K/mm3 (4.4-11.0)
[2023-06-10 07:19] LABS: Bedside Glucose 70 mg/dL (74-106)
[2023-06-10 08:17] LABS: Syphilis Antibodies Non-reactive
[2023-06-10 09:28] LABS: Bedside Glucose 70 mg/dL (74-106)
--- NOTE | 2023-06-10 10:07 | HP.PCM.OB_ITS ---
HPI - General General Date of Admission: 06/10/23 HPI Narrative ELOY LYLES, is a 32 F who presents for persistent decreased movement and regular ctx no vaginal bleeding lof, has not been taking insulin consistently at night. she has had persistent decreased movement the last week, she only feels movement maybe once at night Maternal Data Information SLY Calculator Estimated Delivery Date Method Current WG Current Estimate 06/23/23 Ultrasound #1 38w 1d Other Estimates 06/13/23 LMP (Certain) 39w 4d 06/18/23 Ultrasound #2 38w 6d PFSH PFSH Medical History Anemia Exercise-induced asthma Home Medications blood sugar diagnostic (Blood Glucose Test strips) #50 ea 12/10/22 [Rx Last Taken Unknown] blood-glucose meter #1 ea 12/10/22 [Rx Last Taken Unknown] lancets #100 ea 12/10/22 [Rx Last Taken Unknown] prenat.vits,jazmin,jhd-nczq-aohqm 1 tab PO DAILY 12/28/22 [History Last Taken 06/09/23] ondansetron 4 mg disintegrating tablet 4 mg PO Q8H PRN PRN Nausea #10 tabs 01/05/23 [Rx Last Taken Unknown] OneTouch Verio test strips (blood sugar diagnostic) #150 ea 01/11/23 [Rx Last Taken Unknown] pen needle, diabetic 32 gauge x 5/32 (BD Ultra-Fine Jenise Pen Needle) #50 ea 02/04/23 [Rx Last Taken Unknown] insulin NPH isoph U-100 human 100 unit/mL (3 mL) subcutaneous pen (Humulin N NPH U-100 Insulin KwikPen) 25 unit (0.25 mL) subcut QPM #15 mL 03/14/23 [Rx Last Taken Unknown] insulin lispro-aabc 100 unit/mL subcutaneous pen (Lyumjev KwikPen U-100 Insulin) 6 unit subcut USEASDIRECTD 05/10/23 [History Last Taken 05/28/23] ferrous sulfate 325 mg (65 mg iron) tablet 325 mg PO BID #60 tabs 05/17/23 [Rx Last Taken 06/03/23] Allergy/AdvReac Type Severity Reaction Status Date / Time Sulfa (Sulfonamide Allergy Other Verified 06/10/23 04:22 Antibiotics) amoxicillin [From Augmentin] AdvReac Vomiting Verified 06/10/23 04:22 clavulanic acid AdvReac Vomiting Verified 06/10/23 04:22 [From Augmentin] nitrofurantoin AdvReac Vomiting Verified 06/10/23 04:22 [From Macrobid] Family History Mother Bleeding disorder lupus anticoagulation Other CAD (coronary artery disease) Surgical History History of tonsillectomy Hx of cholecystectomy Social History adopted: No housing: house number of children: 1 current occupational status: unemployed 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 Date Name GA/Weeks Outcome Route Bth Weight Gen Labor Lgth Anesthesia Del Locatn Provider FOB 09/23/20 Cristino 40 live - full term 6#3oz Male 30 epidur al [place] Delivery Date: 09/23/20 Last Updated by: Kelley Huston MD IOL- elective, patient states baby got stuck, traumatic delivery Visit Details Expected Delivery Route/Plan Labor Preferences- CB/BF classes: [] labor support person: [] labor intervention preferences: [] pain management options preferred: [] cut cord/dad catch: [] : [] PP control planned: [] discussed possible routes of delivery and associated risks: [] special requests: [] Plans Covid status: [] Flu vaccine: [] Tdap vaccine: [] Rhogam: [] LARC form signed: [] Problem list reviewed and updated with the most current plan of care details and appropriate orders placed. Relevant counseling for the gestational age provided. Continue routine care and follow up unless otherwise noted in visit notes/problem list details OB Flowsheet Initial Weight: Not Recorded Date -?-?-?-?-?-?-?-?-?-?-?-?- EGA Weight BP Urine Prot -?-?-?-?-?-?-?-?-?-?-?-?- Glucose FHR FuHt Pres Dilation -?-?-?-?-?-?-?-?-?-?-?-?- Effaced St Visit Note 11/09/22 -?-?-?-?-?-?-?-?-?-?-?-?- 7w 5d 302 lb 6 oz 130/85 -?-?-?-?-?-?-?-?-?-?-?-?- 163 -?-?-?-?-?-?-?-?-?-?-?-?- JV- single live IUP measuring 8weeks 3 days and only 5 days from LMP. will keep LMP as sly for now and reassess next visit. 12/07/22 -?-?-?-?-?--?-?-?-?-?-?-?- 11w 5d 291 lb 122/84 Negative -?-?-?-?-?-?-?-?-?-?-?-?- Negative 160 -?-?-?-?-?-?-?-?-?-?-?-?- JV- no further b leeding. ultrasound done in hospital puts her at 11 weeks 5 days today. pt is now considered type 2 dm. will set up with mfm. cruz pending. 12/27/22 -?-?-?-?-?-?-?-?-?-?-?-?- 14w 4d 282 lb 4 oz 113/82 1+ -?-?-?-?-?-?-?-?-?-?-?-?- Negative 158 -?-?-?-?-?-?-?-?-?-?-?-?- JV- pt was seen in ER last night for bleeding. radiology diagnosed her with a marginal previa. She is profusely vomiting still. she is dizzy today and comes in on a wheel chair. No bleeding on exam today. cx closed. + FM. unable to identify previa today. Plan for infusion of IV fluids, zofran, multi vitamin, and thiamine. pelvic rest encouraged. 01/07/23 -?-?-?-?-?-?-?-?-?-?-?-?- 16w 1d 278 lb 126/81 -?-?-?-?-?-?-?-?-?-?-?-?- 153 -?-?-?-?-?-?-?-?-?-?-?-?- LC- pt with no B Mx9-10 days ED visit over the weekend for emesis. passed BM and then had cramping with bleeding. speculum exam benign. continue on colace TID. +white thick discharge c/w yeast. terconazole cream ordered. 01/11/23 -?-?-?-?-?-?-?-?-?-?-?-?- 16w 5d 273 lb 126/72 Negative -?-?-?-?-?-?-?-?-?-?-?-?- Negative 150 -?-?-?-?-?-?-?-?-?-?-?-?- JV- still having refractory constipation. will add reglan. instructions to use mag citrate this weekend also. if no BM this weekend will ask Dr. Anderson for some advice 01/15/23 -?-?-?-?-?-?-?-?-?-?-?-?- 17w 2d 271 lb 2 oz 123/81 Nega tive -?-?-?-?-?-?-?-?-?-?-?-?- Negative -?-?-?-?-?-?-?-?-?-?-?-?- -work in nurse visit dysuria. +UA. Culture pending. Rx keflex 02/08/23 -?-?-?-?-?-?-?-?-?-?-?-?- 20w 5d 267 lb 8 oz 103/73 Trac e -?-?-?-?-?-?-?-?-?-?-?-?- Negative 147 -?-?-?-?-?-?-?-?-?-?-?-?- JV- pt may have uti today vs severe dehydration. starting keflex and will call with results. needs monthly growth scans due to bmi 44 and needs to return for rpt ultrasound of heart. 03/05/23 -?-?-?-?-?-?-?-?-?-?-?-?- 24w 2d 266 lb 6.4 oz 122/80 Ne gative -?-?-?-?-?-?-?-?-?-?-?-?- Negative 152 0 -?-?-?-?-?-?-?-?-?-?-?-?- MH-still with ur inary frequency and leukorrhea on dip. Vaginal cultures collected. Had spotting yesterday-no blood in vagina on exam today. Good Fm. Seeing Dr Mcdonald for diabetes. 04/05/23 -?-?-?-?-?-?-?-?-?-?-?-?- 28w 5d 261 lb 6 oz 112/71 Trac e -?-?-?-?-?-?-?-?-?-?-?-?- Negative 141 Breech 0 -?-?-?-?-?-?-?-?-?-?-?-?- JV- having more cramping lately. some breast leaking also. accepts TDAP today. red top collected. is hesitant to take Dr Mcdonald's advice about insulin. states fasting levels are in the 80's 2 hr pp 60's-120. 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 reports good BS. reports no insulin unless she wants a snack then she takes 6 units. LARC done. discussed NSTs at 32 weeks. admits to minimal water intake. encouraged oral hydration. KW- + FM, no cramping/vb/lof . reports good BS. reports no insulin unless she wants a snack then she takes 6 units. LARC done. discussed NSTs at 32 weeks. admits to minimal water intake. has occasional SOB and mild heart palpitations when supine. encourages to stay off back and increase oral hydration. P/C ratio sent. 04/29/23 -?-?-?-?-?-?-?-?-?-?-?-?- 32w 1d 260 lb 120/78 120/78 Negative -?-?-?-?-?-?-?-?-?-?-?-?- Negative 145 -?-?-?-?-?-?-?-?-?-?-?-?- KW- +fm. no cram ping, vb, lof. KW- +fm. no cramping, vb, lo f. NST reactive. no change in insulin dosing 05/02/23 -?-?-?-?-?-?-?-?-?-?-?-?- 32w 4d 260 lb 4 oz 111/71 -?-?-?-?-?-?-?-?-?-?-?-?- 150 -?-?-?-?-?-?-?-?-?-?-?-?- JV- still dizzy. unable to take iron. ordering labs. nst reactive. fasting levels 70's, highest 2 hr pp is 110 05/07/23 -?-?-?-?-?-?-?-?-?-?-?-?- 33w 2d 258 lb 4 oz 107/71 Nega tive -?-?-?-?-?-?-?-?-?-?-?-?- Negative 150 -?-?-?-?-?-?-?-?-?-?-?-?- MH-NST only Reac tive 05/15/23 -?-?-?-?-?-?-?-?-?-?-?-?- 34w 3d 260 lb 8 oz 100/62 1+ -?-?-?-?-?-?-?-?-?-?-?-?- Negative 150 140 -?-?-?-?-?-?-?-?-?-?-?-?- MH-Nst reactive. Will get Pre E labs. Denies headache or vision changes.
--- NOTE | 2023-06-10 10:07 | PCM.HP.OB ---
HPI - General General Date of Admission: 06/10/23 HPI Narrative ELOY LYLES, is a 32 F who presents for persistent decreased movement and regular ctx no vaginal bleeding lof, has not been taking insulin consistently at night. she has had persistent decreased movement the last week, she only feels movement maybe once at night Maternal Data Information SLY Calculator Estimated Delivery Date Method Current WG Current Estimate 06/23/23 Ultrasound #1 38w 1d Other Estimates 06/13/23 LMP (Certain) 39w 4d 06/18/23 Ultrasound #2 38w 6d PFSH PFSH Medical History Anemia Exercise-induced asthma Home Medications blood sugar diagnostic (Blood Glucose Test strips) #50 ea 12/10/22 [Rx Last Taken Unknown] blood-glucose meter #1 ea 12/10/22 [Rx Last Taken Unknown] lancets #100 ea 12/10/22 [Rx Last Taken Unknown] prenat.vits,jazmin,ibn-jxpa-supjy 1 tab PO DAILY 12/28/22 [History Last Taken 06/09/23] ondansetron 4 mg disintegrating tablet 4 mg PO Q8H PRN PRN Nausea #10 tabs 01/05/23 [Rx Last Taken Unknown] OneTouch Verio test strips (blood sugar diagnostic) #150 ea 01/11/23 [Rx Last Taken Unknown] pen needle, diabetic 32 gauge x 5/32 (BD Ultra-Fine Jenise Pen Needle) #50 ea 02/04/23 [Rx Last Taken Unknown] insulin NPH isoph U-100 human 100 unit/mL (3 mL) subcutaneous pen (Humulin N NPH U-100 Insulin KwikPen) 25 unit (0.25 mL) subcut QPM #15 mL 03/14/23 [Rx Last Taken Unknown] insulin lispro-aabc 100 unit/mL subcutaneous pen (Lyumjev KwikPen U-100 Insulin) 6 unit subcut USEASDIRECTD 05/10/23 [History Last Taken 05/28/23] ferrous sulfate 325 mg (65 mg iron) tablet 325 mg PO BID #60 tabs 05/17/23 [Rx Last Taken 06/03/23] Allergy/AdvReac Type Severity Reaction Status Date / Time Sulfa (Sulfonamide Allergy Other Verified 06/10/23 04:22 Antibiotics) amoxicillin [From Augmentin] AdvReac Vomiting Verified 06/10/23 04:22 clavulanic acid AdvReac Vomiting Verified 06/10/23 04:22 [From Augmentin] nitrofurantoin AdvReac Vomiting Verified 06/10/23 04:22 [From Macrobid] Family History Mother Bleeding disorder lupus anticoagulation Other CAD (coronary artery disease) Surgical History History of tonsillectomy Hx of cholecystectomy Social History adopted: No housing: house number of children: 1 current occupational status: unemployed current occupation: SAHM current occupational exposures/hazards: 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 Date Name GA/Weeks Outcome Route Bth Weight Gen Labor Lgth Anesthesia Del Locatn Provider FOB 09/23/20 Cristino 40 live - full term 6#3oz Male 30 epidural fairfew Delivery Date: 09/23/20 Last Updated by: Kelley Huston MD IOL- elective, patient states baby got stuck, traumatic delivery Visit Details Expected Delivery Route/Plan Labor Preferences- CB/BF classes: [] labor support person: [] labor intervention preferences: [] pain management options preferred: [] cut cord/dad catch: [] : [] PP control planned: [] discussed possible routes of delivery and associated risks: [] special requests: [] Plans Covid status: [] Flu vaccine: [] Tdap vaccine: [] Rhogam: [] LARC form signed: [] Problem list reviewed and updated with the most current plan of care details and appropriate orders placed. Relevant counseling for the gestational age provided. Continue routine care and follow up unless otherwise noted in visit notes/problem list details OB Flowsheet Initial Weight: Not Recorded Date <del>?</del> EGA Weight BP Urine Prot <del>?</del> Glucose FHR FuHt Pres Dilation <del>?</del> Effaced St Visit Note 11/09/22 <del>?</del> 7w 5d 302 lb 6 oz 130/85 <del>?</del> 163 <del>?</del> JV- single live IUP measuring 8weeks 3 days and only 5 days from LMP. will keep LMP as sly for now and reassess next visit. 12/07/22 <del>?</del> 11w 5d 291 lb 122/84 Negative <del>?</del> Negative 160 <del>?</del> JV- no further bleeding. ultrasound done in hospital puts her at 11 weeks 5 days today. pt is now considered type 2 dm. will set up with mfm. anthony pending. 12/27/22 <del>?</del> 14w 4d 282 lb 4 oz 113/82 1+ <del>?</del> Negative 158 <del>?</del> JV- pt was seen in ER last night for bleeding. radiology diagnosed her with a marginal previa. She is profusely vomiting still. she is dizzy today and comes in on a wheel chair. No bleeding on exam today. cx closed. + FM. unable to identify previa today. Plan for infusion of IV fluids, zofran, multi vitamin, and thiamine. pelvic rest encouraged. 01/07/23 <del>?</del> 16w 1d 278 lb 126/81 <del>?</del> 153 <del>?</del> LC- pt with no BMx9-10 days ED visit over the weekend for emesis. passed BM and then had cramping with bleeding. speculum exam benign. continue on colace TID. +white thick discharge c/w yeast. terconazole cream ordered. 01/11/23 <del>?</del> 16w 5d 273 lb 126/72 Negative <del>?</del> Negative 150 <del>?</del> JV- still having refractory constipation. will add reglan. instructions to use mag citrate this weekend also. if no BM this weekend will ask Dr. Anderson for some advice 01/15/23 <del>?</del> 17w 2d 271 lb 2 oz 123/81 Negative <del>?</del> Negative <del>?</del> MH-work in nurse visit dysuria. +UA. Culture pending. Rx keflex 02/08/23 <del>?</del> 20w 5d 267 lb 8 oz 103/73 Trace <del>?</del> Negative 147 <del>?</del> JV- pt may have uti today vs severe dehydration. starting keflex and will call with results. needs monthly growth scans due to bmi 44 and needs to return for rpt ultrasound of heart. 03/05/23 <del>?</del> 24w 2d 266 lb 6.4 oz 122/80 Negative <del>?</del> Negative 152 0 <del>?</del> MH-still with urinary frequency and leukorrhea on dip. Vaginal cultures collected. Had spotting yesterday-no blood in vagina on exam today. Good Fm. Seeing Dr Mcdonald for diabetes. 04/05/23 <del>?</del> 28w 5d 261 lb 6 oz 112/71 Trace <del>?</del> Negative 141 Breech 0 <del>?</del> JV- having more cramping lately. some breast leaking also. accepts TDAP today. red top collected. is hesitant to take Dr Mcdonald's advice about insulin. states fasting levels are in the 80's 2 hr pp 60's-120. 04/19/23 <del>?</del> 30w 5d 263 lb 6 oz 108/76 Negative <del>?</del> Negative 140 Breech <del>?</del> KW- + FM, no cramping/vb/lof. reports good BS. reports no insulin unless she wants a snack then she takes 6 units. LARC done. discussed NSTs at 32 weeks. admits to minimal water intake. encouraged oral hydration. KW- + FM, no cramping/vb/lof. reports good BS. reports no insulin unless she wants a snack then she takes 6 units. LARC done. discussed NSTs at 32 weeks. admits to minimal water intake. has occasional SOB and mild heart palpitations when supine. encourages to stay off back and increase oral hydration. P/C ratio sent. 04/29/23 <del>?</del> 32w 1d 260 lb 120/78 120/78 Negative <del>?</del> Negative 145 <del>?</del> KW- +fm. no cramping, vb, lof. KW- +fm. no cramping, vb, lof. NST reactive. no change in insulin dosing 05/02/23 <del>?</del> 32w 4d 260 lb 4 oz 111/71 <del>?</del> 150 <del>?</del> JV- still dizzy. unable to take iron. ordering labs. nst reactive. fasting levels 70's, highest 2 hr pp is 110 05/07/23 <del>?</del> 33w 2d 258 lb 4 oz 107/71 Negative <del>?</del> Negative 150 <del>?</del> MH-NST only Reactive 05/15/23 <del>?</del> 34w 3d 260 lb 8 oz 100/62 1+ <del>?</del> Negative 150 140 <del>?</del> MH-Nst reactive. Will get Pre E labs. Denies headache or vision changes. Admits no food or fluid intake since early last pm. 05/17/23 <del>?</del> 34w 5d 261 lb 105/70 Negative <del>?</del> Negative 130 <del>?</del> JV- no lof, vaginal bleeding, or dec fm. reactive nst. glucose levels highest 117 after a meal. fasting 70's-80's. wants copper IUD post (8 weeks) no longer wants the nexplanon 05/21/23 <del>?</del> 35w 2d 263 lb 8 oz 106/71 106/71 Negative <del>?</del> Negative 140 <del>?</del> KW- +FM. no lof/vb/ctx. Blood Sugars controlled. no concerns. 05/23/23 <del>?</del> 35w 4d 264 lb 125/80 Negative <del>?</del> Negative 130 <del>?</del> SM- no vb lof good fm no regular ctx, discussed patient requesting primary due to traumatic first with baby getting stuck 05/29/23 <del>?</del> 36w 3d 264 lb 6 oz 99/69 Negative <del>?</del> Negative 140 <del>?</del> MH-NST only reactive. Had headache, felt shaky today. Did not eat. Discussed need to routine meals kun with GDM 05/31/23 <del>?</del> 36w 5d 262 lb 4 oz 106/70 Trace <del>?</del> Negative 145 3 <del>?</del> 60 -2 KW-+fm. no lof/vb/ctx. still desires 39 week P C/S. NST reactive today. KW-+fm. no lof/vb/ctx. still desires 39 week P C/S. NST reactive today. GBS today. next growth 06/14. had one at 35 weeks 06/04/23 <del>?</del> 37w 2d 266 lb 6 oz 127/92 Negative <del>?</del> Negative 150 3 <del>?</del> 60 -2 KW-reactive NST 06/06/23 <del>?</del> 37w 4d 266 lb 8 oz 120/74 Negative <del>?</del> Negative 150 <del>?</del> SM- no vb lof good fm no regular ctx SM- no vb lof occasional dec fm but overall good no regular ctx NST FHR Rate Baby A Baseline: 130 Variability:: Moderate Accelerations:: 15 x 15 Decelerations:: None NST Reactive:: Yes FHR Category:: Category I Uterine Activity:: irregular ROS Constitutional Constitutional: Reports systems reviewed and no addt'l complaints, except as documented Eyes Eyes: Denies change in vision ENT HEENT: Reports systems reviewed and no addt'l complaints, except as documented; Denies headache(s) Cardiovascular Cardiovascular: Reports systems reviewed and no addt'l complaints, except as documented; Denies chest pain or dyspnea Respiratory/Chest Respiratory/Chest: Reports systems reviewed and no addt'l complaints, except as documented Gastrointestinal Gastrointestinal: Reports systems reviewed and no addt'l complaints, except as documented; Denies abdominal pain Genitourinary Genitourinary: Reports systems reviewed and no addt'l complaints, except as documented and contractions Details: present (irregular); Denies dysuria or genital lesions Musculoskeletal Musculoskeletal: Reports systems reviewed and no addt'l complaints, except as documented Neurologic Neurologic: Reports systems reviewed and no addt'l complaints, except as documented Endocrine Endocrinology: Reports systems reviewed and no addt'l complaints, except as documented Vital Signs Vital Signs Vital Signs: 06/10/23 04:08 06/10/23 04:08 06/10/23 04:12 Temperature Temperature Source Pulse Rate 97 Blood Pressure 125/78 H BP Systolic 125 BP Diastolic 78 Pulse Ox 97 06/10/23 04:12 06/10/23 04:10 06/10/23 04:10 Temperature 97.9 F Temperature Source Temporal Pulse Rate 95 Blood Pressure BP Systolic BP Diastolic Pulse Ox 06/10/23 08:28 06/10/23 08:28 06/10/23 08:28 Temperature Temperature Source Pulse Rate 80 86 Blood Pressure 99/54 L BP Systolic 99 BP Diastolic 54 Pulse Ox 06/10/23 08:28 06/10/23 08:32 06/10/23 08:32 Temperature Temperature Source Pulse Rate 80 Blood Pressure BP Systolic BP Diastolic Pulse Ox 98 88 Weight Weight: 264 lb 6.4 oz Body Mass Index (BMI) 43.9 Physical Exam Const alert, oriented x3, no apparent distress and healthy appearing HEENT normocephalic and moist oral mucous membranes Head and Scalp: atraumatic Neck full ROM, no lymphadenopathy, supple and thyroid normal General: trachea midline Lymph Lymphatic: no lymphadenopathy noted Chest inspection of chest normal Resp normal respiratory effort Cardio regular rate GI normal to inspection, nondistended, normoactive bowel sounds, soft to palpation and non-tender Inspection: gravid external exam normal Manual OB Exam: estimated gestational size appropriate, presentation cephalic, dilated, effaced and station Extremity normal to inspection General Extremity: Negative for edema Skin no rashes or lesions noted Neuro no focal motor deficits and deep tendon reflexes 2+ bilaterally Motor Exam: strength 5/5 throughout and clonus absent Psych mental status grossly normal Labs Labs Labs: Blood Type A POSITIVE Antibody Screen NEGATIVE Hct 31.8 % (37-47) L Hgb 10.0 g/dL (12.0-15.0) L Obstetrics US Syphilis Total Ab Non-reactive Rubella IgG Antibody Reactive (Nonreactive) Hep Bs Antigen Non-Reactive (Nonreactive) Chlamydia DNA (SONAM) Negative (Negative) Neisseria gonorrhoeae DNA (SONAM) Negative (Negative) HIV 1&2 Antibody Non-Reactive (Nonreactive) Glucose 1 Hr 50 gm 181 mg/dL (70-140) H Assessment & Plan (1) Decreased movements in third trimester: COMMENT: persistent decreased movement for over a week. discussed with patient, recommend proceeding with delivery due to diabetes and persistent decreased movement. patient has been noncompliant with insulin therapy (2) History of shoulder dystocia: COMMENT: plan primary csection at 39 weeks (3) Contraceptive management: COMMENT: wants paragard at 8 weeks post (4) Anemia: QUALIFIERS: Anemia type: iron deficiency Iron deficiency anemia type: inadequate dietary iron intake Qualified Code(s): D50.8 - Other iron deficiency anemias COMMENT: add Fe daily (5) Urinary tract infection affecting : COMMENT: Keflex started in ER on 12/26/22. Repeat sx 01/15 and started keflex; culture negative (6) Pregestational diabetes mellitus, modified White class B: COMMENT: patient states she hasn't been taking insulin regularly at night- noncompliant. endocrine managing, type 2; nl echo. growth US Q4wk with mfm now on insulin 02/08/23 -start twice weekly testing at 32; doing growth Q4w with MFM (30%) (5/30 76%) (34 weeks-73% AC 91%) (7) : QUALIFIERS: Weeks of gestation: 37 weeks Qualified Code(s): Z3A.37 - 37 weeks gestation of COMMENT: GBS neg, NIPT low risk, carrier neg. . patient requesting primary due to traumatic delivery with possible shoulder dystocia last delivery. (8) Supervision of high-risk : COMMENT: [id number] SLY 06/13/23. PC:Owen. Ruiz PLAN: Plan plan primary low transverse now due to persistent decreased movement, noncompliant diabetic on insulin. history of shoulder sytodica, EFW 1 lb larger than previous shoulder dystocia
[2023-06-10 11:57] LABS: Bedside Glucose 67 mg/dL (74-106)
[2023-06-10] MEDS: Acetaminophen 500 MG Tablet PO (12:02)
[2023-06-10] MEDS: Sodium Citrate/Citric Acid 30 ML UDC PO (12:02)
[2023-06-10] MEDS: Ondansetron 4 MG/2 ML Vial IV ×2 (12:16→18:05)
--- NOTE | 2023-06-10 12:34 | EX.PCM.OBRPT ---
Maternal Data Information SLY Calculator Estimated Delivery Date Method Current WG Current Estimate 06/23/23 Ultrasound #1 38w 1d Other Estimates 06/13/23 LMP (Certain) 39w 4d 06/18/23 Ultrasound #2 38w 6d Final SLY Source: LMP Details Operative Information Date of Procedure: 06/10/23 Pre-Operative Diagnosis: persistent decreased movement noncompliant diabetic history of shoulder dystocia Post-Operative Diagnosis: same Indications Narrative: Surgeon: Kelley Huston MD Classification: Scheduled Procedure Type: low transverse survey research center director #1: Tavno Tracy survey research center director #2: Martha Pink Type of Anesthesia: Spinal Special Medications: none Antibiotic Given: Ancef 2 grams IV x1 Drain: Talavera to straight drain Estimated Blood Loss: 800 Fluids Replaced: crystalloid Findings Description of Procedure: The patient is a 32 yo presented for primary . Spinal anesthesia was placed without difficulty. Talavera catheter was placed. The patient was placed in the dorsal supine position with leftward tilt. Patient was prepped and draped in the normal sterile fashion. Pfannenstiel skin incision was made with the scalpel and carried through to the underlying layer of fascia with the scalpel. Fascia was nicked in the midline and the incision extended laterally. The rectus bellies were dissected off superiorly and inferiorly with out complication both sharply and bluntly. The peritoneum was entered digitally. The incision was stretched and a low transverse uterine incision was made with the scalpel. The 's head was delivered atraumatically followed by the anterior and posterior shoulders without complication the rest of the delivered. The cord was clamped and cut and the infant was handed off to awaiting nurse. The placenta was delivered spontaneously immediately following and was noted to be intact and have a three-vessel cord. The uterus was exteriorized cleared of all clots and debris, and the incision was closed in a double layer closure using #1 Monocryl. The ovaries and fallopian tubes were noted to be within normal limits. The uterus was returned to the maternal abdomen and gutters were cleared of all clots and debris. The peritoneum was closed with 3-0 Monocryl in a running fashion. Gloves were changed prior to fascial closure. Fascia was closed with 0 PDS in a running fashion. Subcutaneous tissue was copiously irrigated and the skin was closed with 3-0 Monocryl in a subcuticular fashion. Mepilex dressing was applied without complication. Patient was taken to recovery in stable condition. It was discussed with the patient that based on the clinical information obtained during this encounter, combined with her history, at this time I would recommend cesareans for future deliveries if further pregnancies are desired. Amniotic Membrane Rupture Type: Artificial Amniotic Fluid Description: Clear Placenta Disposition: [facility] Cord Vessel Description: 3 Vessels Delayed Cord Clamping: Yes Complications Risks of Surgery Discussed w/Patient: Bleeding, Infection, Need for Future C-Sections and Injury to surrounding structure(s) including bowel and bladder Vaginal Delivery Complication Complications: None Admit VTE Documentation VTE Present on Admission: No VTE Mechan Device Prophylaxis: SCD's Procedures Urinary/Genital [id number]: [id number] delivery+PP Care([facility])
[2023-06-10] MEDS: Oxytocin 15 Units/NS 250ml 15 UNITS/250 ML IV.SOLN 83 UNITS IV (13:45)
[2023-06-10] MEDS: Ketorolac 30 MG/ML Syringe IV (14:46)
[2023-06-10 15:37] LABS: Bedside Glucose 84 mg/dL (74-106)
[2023-06-10] MEDS: Lactated Ringers 1,000 ML 100 ML IV (16:54)
--- NOTE | 2023-06-10 17:12 | NURSING ---
Patient showing no interest in holding or bonding with for approximately the first 3 hours of 's life.
[2023-06-10] MEDS: Acetaminophen 500 MG Tablet 1000 MG PO (17:50)
[2023-06-10 18:38] LABS: Bedside Glucose 78 mg/dL (74-106)
--- NOTE | 2023-06-10 21:04 | NURSING ---
This RN enocuraged pt to get up at 0. Pt reported she is still feeling super dizzy and stated I do not want to throw up my pizza I just ate. This RN will check back at 2039 to get pt up.
--- NOTE | 2023-06-10 21:05 | NURSING ---
This RN back in room at 2039 to get pt up, pt stated I am still dizzy and I need to feed Tex
[2023-06-10 21:20] LABS: Bedside Glucose 113 mg/dL (74-106)
[2023-06-11] VITALS (10 sets, daily range): BP systolic 105–134; BP diastolic 55–74; PULSE 60–76; RESP 14–16; TEMP 36.9–37; O2SAT 95–100
[2023-06-11] MEDS: Acetaminophen 500 MG Tablet 1000 MG PO ×4 (00:46→20:30)
[2023-06-11] MEDS: Enoxaparin 40 MG/0.4 ML Syringe SC ×2 (00:46→14:02)
--- NOTE | 2023-06-11 01:02 | NURSING ---
Ap ordered 500cc bolus for low output and stated to leave Talavera in till output is better.
[2023-06-11] MEDS: LACTATED RINGERS 500 ML 999 ML IV (01:18)
[2023-06-11] MEDS: Ketorolac 30 MG/ML Syringe IV ×2 (04:19→11:05)
[2023-06-11 06:32] LABS: Bedside Glucose 102 mg/dL (74-106)
--- NOTE | 2023-06-11 06:55 | PN.OBGYN_ITS ---
Subjective Subjective Patient doing well without complaints. Tolerating PO. Ambulating and voiding without difficulty. Feeding well. Denies chest pain, shortness of breath, calf pain/swelling, fevers, chills, lightheadedness. Objective Data Objective Data Vital Signs: Vital Signs Temp Pulse Resp BP Pulse Ox O2 Del Method 98.3 F 62 14 120/74 97 Room Air 06/10/23 19:39 06/11/23 04:53 06/11/23 04:53 06/11/23 04:10 06/11/23 04:53 06/11/23 04:53 Oxygen Delivery Method Room Air Weight: 264 lb 6.4 oz Body Mass Index (BMI) 43.9 Intake & Output: Intake and Output for Last 24 Hours 06/09/23 06/10/23 06/11/23 23:59 23:59 23:59 Intake Total 2450.33 / 2450.33 1156.67 / 1156.67 Output Total 1000 / 1000 300 / 300 Balance 1450.33 / 1450.33 856.67 / 856.67 Lab / Micro Data Attestation: I reviewed the patient's lab results. 06/10/23 05:15 Labs: Laboratory Results - last 24 hr 06/10/23 05:15: WBC 12.4 H, RBC 3.77 L, Hgb 10.0 L, Hct 31.8 L, MCV 84.4, MCH 26.5 L, MCHC 31.4 L, RDW Std Deviation 43.2, RDW Coeff of Shana 14.1, Plt Count 263, MPV 12.5 H, Immature Gran % (Auto) 0.500, Neut % (Auto) 74.1 H, Lymph % (Auto) 19.5, Wallace % (Auto) 5.1, Eos % (Auto) 0.6, Baso % (Auto) 0.2, Absolute Neuts (auto) 9.2 H, Absolute Lymphs (auto) 2.41, Nucleated RBC % 0, Syphilis Total Ab Non-reactive, Blood Type A POSITIVE, Antibody Screen NEGATIVE 06/10/23 07:01: POC Glucose 70 L 06/10/23 09:05: POC Glucose 70 L 06/10/23 11:37: POC Glucose 67 L 06/10/23 15:18: POC Glucose 84 06/10/23 18:18: POC Glucose 78 06/10/23 21:01: POC Glucose 113 H 06/11/23 06:08: POC Glucose 102 ROS Constitutional Constitutional: Reports systems reviewed and no addt'l complaints, except as documented; Denies anorexia or headache(s) Cardiovascular Cardiovascular: Reports systems reviewed and no addt'l complaints, except as documented; Denies dizziness, dyspnea, nausea or tachypnea Respiratory/Chest Respiratory/Chest: Reports systems reviewed and no addt'l complaints, except as documented; Denies cough, dyspnea, shortness of breath at rest or tachypnea Gastrointestinal Gastrointestinal: Reports systems reviewed and no addt'l complaints, except as documented; Denies abdominal pain, constipation or nausea Genitourinary Genitourinary: Reports systems reviewed and no addt'l complaints, except as documented; Denies burning urination, difficulty urinating, dysuria, urinary frequency or urinary incontinence Musculoskeletal Musculoskeletal: Reports systems reviewed and no addt'l complaints, except as documented Integumentary Integumentary: Reports systems reviewed and no addt'l complaints, except as documented Neurologic Neurologic: Reports systems reviewed and no addt'l complaints, except as d ocumented; Denies abnormal speech, dizziness or headache(s) Psychiatric Psychiatric: Reports systems reviewed and no addt'l complaints, except as docum ented Endocrine Endocrinology: Reports systems reviewed and no addt'l complaints, except as documented Hematologic/Lymphatic Hematologic/Lymphatic: Reports systems reviewed and no addt'l complaints, except as documented Physical Exam Const alert, oriented x3 and no apparent distress Neck full ROM Resp normal respiratory effort, normal air movement and no retractions Effort and Inspection: able to speak in complete sentences and symmetric chest movement GI soft to palpation Inspection: incision intact Bladder / Kidney Exam: bladder normal to palpation Uterus Palpation: uterus fundus Extremity normal to inspection and full ROM Psych mental status grossly normal, thought process normal and cooperative Assessment & Plan (1) delivery delivered: COMMENT: LTCS dec fm noncompliant diabetes 38 history shoulder dystocia boy maisha PLAN: s/p LTCS PPD # 1 1. routine post care 2. breast feeding- support given 3. rh positive 4. rubella immune (2) Pregestational diabetes mellitus, modified White class B: COMMENT: patient states she hasn't been taking insulin regularly at night- noncompliant. endocrine managing, type 2; nl echo. growth US Q4wk with mfm now on insulin 02/08/23 -start twice weekly testing at 32; doing growth Q4w with MFM (30%) (04/23 76%) (34 weeks-73% AC 91%) (3) Depression: QUALIFIERS: Depression Type: other depression Qualified Code(s): F32.89 - Other specified depressive episodes (4) Anxiety: Charges/Coding Multi Select Codes Urinary/Genital Urinary/Genital CPT Codes: No Charge
[2023-06-11 07:11] LABS: Hematocrit 29.4 % (37-47); Hemoglobin 9.3 g/dL (12.0-15.0); Mean Corp Hgb Conc 31.6 g/dL (32-36); Mean Corpuscular Hgb 26.7 pg (27.0-32.0); Mean Corpuscular Volume 84.5 fL (81-99); Mean Platelet Vol. 12.4 fl (6.2-12.0); Platelet Count 229 K/mm3 (150-450); RBC Distribution Width CV 14.2 % (11.6-14.6); RBC Distribution Width SD 43.5 fl (35.1-43.9); Red Blood Count 3.48 M/mm3 (4.2-5.4); White Blood Count 10.4 K/mm3 (4.4-11.0)
[2023-06-11 08:12] LABS: Bedside Glucose 133 mg/dL (74-106)
[2023-06-11] MEDS: Senna/Docusate Sodium 1 Tablet PO (11:05)
[2023-06-11] MEDS: 0.9% Saline Lock 10 ML Syringe IV (11:06)
[2023-06-11 11:57] LABS: Bedside Glucose 76 mg/dL (74-106)
[2023-06-11] MEDS: Naproxen 500 MG Tablet PO (18:02)
[2023-06-11 18:23] LABS: Bedside Glucose 116 mg/dL (74-106)
[2023-06-11 22:16] LABS: Bedside Glucose 108 mg/dL (74-106)
[2023-06-12 02:00] VITALS: BP 113/67; PULSE 67; RESP 15; TEMP 36.5; O2SAT 98
[2023-06-12] MEDS: Naproxen 500 MG Tablet PO ×2 (02:19→10:42)
[2023-06-12] MEDS: Acetaminophen 500 MG Tablet 1000 MG PO ×3 (02:19→14:18)
[2023-06-12] MEDS: Enoxaparin 40 MG/0.4 ML Syringe SC ×2 (02:20→14:26)
--- NOTE | 2023-06-12 07:56 | PCM.PN.OB ---
Subjective Subjective Patient doing well without complaints. Tolerating PO. Ambulating and voiding without difficulty. Feeding has been difficult but working with . . Denies chest pain, shortness of breath, calf pain/swelling, fevers, chills, lightheadedness. Objective Data Objective Data Vital Signs: Vital Signs Temp Pulse Resp BP Pulse Ox O2 Del Method 97.7 F L 67 15 113/67 98 Room Air 06/12/23 02:00 06/12/23 02:00 06/12/23 02:00 06/12/23 02:00 06/12/23 02:00 06/12/23 02:00 Oxygen Delivery Method Room Air Weight: 264 lb 6.4 oz Body Mass Index (BMI) 43.9 Intake & Output: Intake and Output for Last 24 Hours 06/10/23 06/11/23 06/12/23 23:59 23:59 23:59 Intake Total 2450.33 / 2450.33 1156.67 / 1156.67 Output Total 1000 / 1000 800 / 800 Balance 1450.33 / 1450.33 356.67 / 356.67 Lab / Micro Data 06/11/23 06:50 Labs: Laboratory Results - last 24 hr 06/11/23 07:42: POC Glucose 133 H 06/11/23 11:39: POC Glucose 76 06/11/23 17:58: POC Glucose 116 H 06/11/23 21:56: POC Glucose 108 H Physical Exam Const alert and oriented x3 HEENT normocephalic Eyes PERRL Neck full ROM Resp normal respiratory effort GI soft to palpation GI Narrative: FF below U. Dressing dry and intact Palpation: tender other (appropriately) Assessment & Plan (1) delivery delivered: COMMENT: LTCS dec fm noncompliant diabetes 38 history shoulder dystocia boy maisha (2) Pregestational diabetes mellitus, modified White class B: COMMENT: pp controlled. Has discussed management with Dr Mcdonald. (3) Depression: QUALIFIERS: Depression Type: other depression Qualified Code(s): F32.89 - Other specified depressive episodes COMMENT: declines med (4) Anxiety: COMMENT: declines med PLAN: Plan s/p LTCS PPD # 2 1. routine post care 2. breast feeding- support given 3. rh positive 4. rubella immune
[2023-06-12 09:17] VITALS: BP 132/83; PULSE 73; RESP 16; TEMP 36.8; O2SAT 98
[2023-06-12] MEDS: Senna/Docusate Sodium 1 Tablet PO (10:42)
[2023-06-12 14:03] VITALS: BP 139/72; PULSE 70; RESP 16; TEMP 36.8
--- NOTE | 2023-06-12 14:46 | CASEMGMT ---
Social Work Assessment Labor and Delivery Unit Patient Address:[address] [place] [address] Phone number: [phone] Date of Referral: 06/10/23 Time of Referral:? 170 Referred By: Dr. Kelley Huston Date of Intervention: ??06/12/23 Time of Intervention:? 1320 Reason for Referral:? Anxiety and depression Sw completed chart review and acknowledges social work consult received due to maternal anxiety and depression. Nursing staff report that ROB has high anxiety during and post deivery. Sw presented to bedside, introduced self to mother of baby (MOB- Monica) and father of baby (FOB- Miguel) History obtained from: medical records, MOB and FOB Household composition: Currently residing at home is CATRINA RIVAS, older brother, Cristino (2.5 years old) and baby boy Tex Concepcion Patient's parent/guardian status:? Parents state that they have been together for four years. They met on [employer]. Parents are . While meeting with MOB alone MOB denies domestic violence or intimate partner abuse. Medical History: This is third and second delivery for ROB. ROB received routine care with [place]. ROB delivered baby via repeat . Baby boy, Cristino, was born on 06/10/23 weighing 7lb 14oz. and his apgars were 8 and 9. MOB states that they are working on , ROB has a pump for home. ? Educational Status:?ROB has obtained her masters degree in health science and sports physiology. ROB is planning on returning to school to obtain her doctorate in epidemiology. 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 CATRINA obtained his high school diploma and a trade in [employer]. 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 He is able to get several days off of work now that baby is born. Infant Supplies:? Parents report they have obtained everything they need for baby including car seat, safe sleep space, clothes, diapers, wipes and breast pump. Childcare/Caregiver(s):? MOB states that when both parents are at work they have grandparents that will be able to help with babysitting. Transportation:?? No transportation barriers at this time- both parents have reliable means of transporatation. Programs/Agencies Involved: ???MOB states that she and the boys are connected to [employer] insurance through S. They will be able to have that insurance for one year and then they will get on the insurance offered through [employer] employer. Children Services/Legal Issues:??? Parents deny former involvement with Children Services. NO issues or concerns at this time warranting a referral. Behavioral Health Issues: ??Mental Health History:??CATRINA denies mental health history. ROB states that she has been diagnosed with anxiety, depression and has a history with depression. ROB states that she has panic attacks, even now. When asked the frequency of her panic attacks, ROB states that it is hard to keep track of because they are very infrequent. ROB states that FOJustin has been a big support for her and knows how to help her through it. MOB states that she has been able to notice that typically a panic attack will be a result of something medical that she has going on. ROB states that her first baby required to be admitted to the Intensive Care Unit. ROB states that he was taken to the NICU in the middle of the night and parents were not informed/ explained as to why that was medically necessary at that time. ROB acknowledges that a lot of her anxiety at this time is fear that something will be wrong with Tex. MOB informed sw that when she was experiencing depression she did have thoughts of self harm, without plan or intent. ROB states that she had thoughts during that time that Cristino would be better off without me. Sw processed this with MOB and FOJustin. FOB states that ROB has since opened up to him about that time and he has been researching how to support her. ROB completed Lamar Depression Screen, her score was a 5. Sw educated ROB on coping strategies and encouraged her to get connected to mental health supports. MOB expressed understanding and agreement. ? Substance Use History:??None, MOB denies Family History:???MOB states that FOB dad (paternal grandpa) is a functioning alcoholic.MOB states that her mom also has been diagnosed with anxiety and depression, and is a big support person for ROB when she is struggling with her own mental health. ?? Drug Screens: ?No urine screens observed in chart. Family/Social Stressors:? ROB only acknowledges her mental health history as a stressor at this time. Support Systems: MOB and CATRINA report that both of their parents are supportive. Depression/Shaken Baby/Safe Sleeping:?Sw provided literature and education on baby blues and post depression. Sw provided education on shaken baby prevention and ABCs of safe sleep. Parents report they understand information discussed. Parents state that they have also educated their other son about safe sleep as well. have this ASSESSMENT:?Parents were very engaged and participated in psychosocial assessment. Parents discussed concerns regarding maternal mental health after her first baby was born, and what they are doing to ensure she is ok following this delivery. MOB mental health history and depression discussed at length. Parents provided with education and literature on baby blues, post and psychosis. MOB reports that she is more receptive at this time to get connected to mental health supports if necessary. MOB states that she feels much different mentally after this delivery than her first one, in a positive way. PLAN:? MOB and baby to be discharged when medically ready. No social work concerns. ?No other services requested or indicated. Kenna Lo, TRADE ECONOMIST, TOOLS AND PARTS ATTENDANT
== END 2023-06-12 15:05 | disposition home or self-care (01) | DRG 540 ==
LOC: WPOUT 06:44 → WP 06:44
PROVIDERS: Advanced Practice Midwife; Admitting Provider Obstetrics & Gynecology; PCP Family Medicine; Referring Provider Obstetrics & Gynecology; Visit Provider Obstetrics & Gynecology
PROC: 10D00Z1 Extraction of Products of Conception, Low, Open Approach (ICD-10-PCS; CPT 59514; principal; 2023-06-10 11:45)
DX: O36.8130 Decreased fetal movements, third trimester, not applicable or unspecified (principal); O24.12 Pre-existing type 2 diabetes mellitus, in childbirth; Z79.4 Long term (current) use of insulin; F32.A Depression, unspecified; D50.8 Other iron deficiency anemias; F41.9 Anxiety disorder, unspecified; Z91.199 Patient's noncompliance with other medical treatment and regimen due to unspecified reason; Z37.0 Single live birth; Z79.2 Long term (current) use of antibiotics; O99.344 Other mental disorders complicating childbirth; O99.02 Anemia complicating childbirth; Z3A.37 37 weeks gestation of pregnancy; Z87.440 Personal history of urinary (tract) infections
CPT/HCPCS: 59025; 59050; 81001; 82962; 85025; 85027; 86780; 86850; 86900; 86901; 99221; J7120; A4216; G0378; J2405

== ENCOUNTER → 2023-07-22 | Outpatient (CLI) | payer MEDICAID, SELFPAY ==
[2023-07-26 11:09] LABS: HPV APTIMA, High Risk Negative (Negative)
== END | disposition home or self-care (01) ==
LOC: LABSPEC 13:28
PROVIDERS: PCP Family Medicine; Referring Provider Obstetrics & Gynecology; Visit Provider Obstetrics & Gynecology
DX: Z12.4 Encounter for screening for malignant neoplasm of cervix (principal)
CPT/HCPCS: 87624; 88175; G0145

== ENCOUNTER 2023-07-26 10:57 | Outpatient (CLI) | payer MEDICAID, SELFPAY ==
[2023-08-02 12:58] LABS: Activated Protein C Resistance 2.8 ratio (2.2-3.5); Anti-Cardiolipin Ab, IgG, Qn < 9 GPL U/mL (0-14); Anti-Cardiolipin Ab, IgM, Qn < 9 MPL U/mL (0-12); Antithrombin 3 Function 119 % (75-135); Beta-2-Glycoprotein I IgG <9 (0-20); Beta-2-Glycoprotein I IgM <9 (0-32); Dilute Russell Viper Venom 39.9 sec (0.0-47.0); Homocyst(e)ine 10.8 umol/L (0.0-14.5); Interpretation Comment: (.); PTT-Lupus Anticoagulant 37.7 sec (0.0-43.5); Protein C, Functional 134 % (73-180); Protein S, Free 65 % (61-136); dPT CONFIRMATION RATIO 1.21 Ratio (0.00-1.34)
== END 2023-07-26 23:59 | disposition home or self-care (01) ==
PROVIDERS: PCP Family Medicine; Referring Provider Obstetrics & Gynecology; Visit Provider Obstetrics & Gynecology
DX: D50.8 Other iron deficiency anemias (principal); Z82.49 Family history of ischemic heart disease and other diseases of the circulatory system
CPT/HCPCS: 36415; 81240; 81241; 83090; 85300; 85303; 85307; 85420; 85613; 85705; 85732

== ENCOUNTER → 2023-12-10 | Outpatient (CLI) | payer MEDICAID, SELFPAY ==
--- NOTE | 2023-12-10 13:57 | ECHOD_ITS ---
Version 2 Reason For Study: Palpitations Procedure This was a 2D Doppler, Color Flow transthoracic echocardiogram. Exam performed in department. Left Ventricle Normal LV size. Left ventricular systolic function is normal. The estimated ejection fraction is 60 %. No regional wall motion abnormalities noted. Right Ventricle Normal RV size. Normal systolic function. Atria Normal left atrium. Normal right atrium. Mitral Valve Normal mitral valve. Tricuspid Valve Normal tricuspid valve. Mild tricuspid valve insufficiency. Pulmonary artery systolic pressure is 24 mmHg. Aortic Valve Normal aortic valve. Pulmonic Valve Normal pulmonic valve. Great Vessels Normal aortic root. The pulmonary artery is normal size. Normal inferior vena cava. Pericardium/Pleural No pericardial effusion. Medication Patient is currently , unable to utilize Definity. MMode/2D Measurements & Calculations LVIDd: 5.5 cm IVSd: 1.1 cm Ao root diam: 2.5 cm LVIDs: 3.8 cm LVPWd: 1.0 cm LA dimension: 4.2 cm RVDd: 3.8 cm FS: 31.1 % LAV(MOD-bp): 63.1 ml LA A4 area: 21.6 cm2 RA A4 area: 17.4 cm2 LAV(MOD-bp) Indexed: 27.7 ml/m2 LAV(MOD-sp2): 63.1 ml LAV(MOD-sp4): 62.4 ml TAPSE: 2.6 cm Time Measurements MV dec time: 0.22 sec Doppler Measurements & Calculations MV E max daren: 119.8 cm/sec Lat Peak E' Daren: 13.6 cm/sec Med Peak E' Daren: 14.8 cm/sec MV A max daren: 80.3 cm/sec E/E' lat: 8.8 E/E' med: 8.1 MV E/A: 1.5 MV V2 max: 140.3 cm/sec MV P1/2t max daren: 140.3 cm/sec Ao V2 max: 169.8 cm/sec MV max P.9 mmHg MV P1/2t: 78.3 msec Ao max P.6 mmHg MV V2 mean: 69.2 cm/sec MV dec slope: 524.7 cm/sec2 Ao V2 mean: 123.7 cm/sec MV mean P.4 mmHg MVA(P1/2t): 2.8 cm2 Ao mean P.8 mmHg MV V2 VTI: 39.7 cm Ao V2 VTI: 35.0 cm AV (velocity ratio): 0.89 LV V1 max: 145.3 cm/sec PA V2 max: 117.3 cm/sec TR max daren: 230.1 cm/sec LV V1 max P.4 mmHg TR max P.2 mmHg LV V1 mean P.0 mmHg LV V1 mean: 107.1 cm/sec LV V1 VTI: 31.1 cm ECHO/Echo Complete Interpretation Summary Normal LV size. Left ventricular systolic function is normal. The estimated ejection fraction is 60 %. Structurally normal valves. Ordering Physician: Miguel Camacho Referring Physician: Miguel Camacho Performed By: Nick Engel RCS
== END | disposition home or self-care (01) ==
LOC: CVS 13:53
PROVIDERS: PCP Family Medicine; Referring Provider Internal Medicine Cardiovascular Disease; Visit Provider Internal Medicine Cardiovascular Disease
DX: R00.2 Palpitations (principal)
CPT/HCPCS: 93306

== ENCOUNTER 2024-04-02 10:28 | Emergency (ER) | payer MEDICAID, SELFPAY ==
[2024-04-02 10:30] VITALS: BP 136/76; PULSE 85; RESP 16; TEMP 36.3; O2SAT 100; BMI 62.4
--- NOTE | 2024-04-02 11:02 | CT_ITS ---
STUDY: CTA CHEST REASON FOR EXAM: Female, 33 years old. Dyspnea. Recent posthysterectomy. RADIATION DOSAGE (If Supplied By Facility): CTDIvol = ( 16.64 ) mGy, DLP = ( 1662.01 ) mGycm TECHNIQUE: The examination was performed with the intravenous administration of IV 100mL Isovue-370. Post-processing of the angiographic images was performed, with multiplanar reformation and 3D reconstruction. Individualized dose optimization techniques were used for this CT. COMPARISON: None. FINDINGS: Normal enhancement of the main pulmonary artery and right and left pulmonary arteries. Normal enhancement of the bilateral peripheral pulmonary arteries. There is no demonstrated pulmonary embolism. Normal thoracic aorta and visualized great vessels. There is no demonstrated aortic dissection. Normal heart and pericardium. Normal mediastinum. Normal hilar regions. Normal visualized trachea and bronchi. The lungs are well expanded. Normal pulmonary parenchyma. Normal pleura. Normal chest wall structures. Normal osseous structures. Prior cholecystectomy. CT/CTA Chest W/WO Contrast IMPRESSION: Normal CTA chest examination, without a demonstrated pulmonary embolism or arterial dissection. Electronically Signed: Rmau Gamez MD at 14:42 EDT ,
--- NOTE | 2024-04-02 11:02 | EDS_ITS ---
HPI History of Present Illness Chief Complaint: Syncope Narrative Narrative: 33-year-old female presenting with shortness of breath and syncope. Patient states she had a hysterectomy 1 week ago at [facility]. She states that gynecology- oncology took this out because they thought she had an AVM and she was bleeding. Patient states initially she had vaginal bleeding but this is stopped. She has not a fever, chills, cough. She does not have any abdominal pain. She has no vaginal complaints or urinary complaints. Patient states today she was in her home and she started to feel really short of breath and off. She felt like her whole body was tingling. Patient states she went to watch a movie with her daughter and after 5 minutes of sitting on the couch she said her whole body felt like sandbags and she felt heavy and she fainted. She did not fall and hit her head. Her daughter screamed are you okay. She estimates she was out for about a minute. She did not lose her bladder or bowels. No history of seizure. No history of syncope. Patient denies chest pain [facility] Medical History Anemia delivery delivered Exercise-induced asthma Mitral valve prolapse Palpitations Pregestational diabetes mellitus, modified White class B Home Medications cephalexin 500 mg capsule mg PO 12/06/23 [History Last Taken Unknown] Allergy/AdvReac Type Severity Reaction Status Date / Time Sulfa (Sulfonamide Allergy Other Verified 04/02/24 10:30 Antibiotics) clindamycin AdvReac Mild RAPID Verified 04/02/24 10:30 HEART RATE amoxicillin [From Augmentin] AdvReac Vomiting Verified 04/02/24 10:30 clavulanic acid AdvReac Vomiting Verified 04/02/24 10:30 [From Augmentin] nitrofurantoin AdvReac Vomiting Verified 04/02/24 10:30 [From Macrobid] Family History Mother Bleeding disorder lupus anticoagulation Other CAD (coronary artery disease) Surgical History History of adenoidectomy History of tonsillectomy Hx of cholecystectomy Social History adopted: No housing: house number of children: 1 current occupational status: unemployed current occupation: [employer] current occupational exposures/hazards: No 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 Smoking Status: Never smoker second hand exposure: Yes alcohol intake: never substance use type: does not use what type of physical activity do you participate in: none seatbelt use: always do you feel safe at home: Yes ROS ROS ED Constitutional Constitutional ED: Denies chills, fever(s) or sweats Eyes Eyes: Denies blurry vision or change in vision ENT ENT ED: Denies ear pain or sore throat Cardiovascular Cardiovascular: Reports other Details: Syncopal episode ; Denies chest pain, palpitations or racing heartbeat Respiratory/Chest Respiratory/Chest: Reports dyspnea and dyspnea on exertion; Denies cough or sputum Gastrointestinal Gastrointestinal: Denies abdominal pain, constipation, diarrhea, nausea or vomiting Genitourinary Genitourinary ED: Denies dysuria, hematuria or urinary frequency Musculoskeletal Musculoskeletal: Denies arthralgias, myalgias or neck pain Integumentary Denies abscess, Abrasions or rash Neurologic Neurologic: Denies headache(s), paresthesias or weakness Psychiatric Psychiatric: Denies anxiety, depression, suicidal ideation or suicidal thoughts Endocrine Endocrinology: Denies polydipsia or polyuria EXAM Physical Exam Const Vital Signs: 04/02/24 10:30 04/02/24 11:26 04/02/24 11:26 Temperature 97.4 F L 98.5 F Temperature Source Temporal Temporal Pulse Rate 85 79 Respiratory Rate 16 19 H Respiratory Effort Respiratory Pattern Blood Pressure 136/76 H 148/74 H Blood Pressure Mean 96 98 Pulse Ox 100 99 99 Oxygen Delivery Method Room Air Room Air Room Air 04/02/24 11:26 04/02/24 12:28 04/02/24 14:00 Temperature Temperature Source Pulse Rate 75 82 Respiratory Rate 16 15 Respiratory Effort Short of Breath Respiratory Pattern Normal Blood Pressure 134/75 H 122/85 H Blood Pressure Mean 94 97 Pulse Ox 99 100 Oxygen Delivery Method Room Air Room Air Positive well nourished General Appearance ED: NAD; Negative for pallor HEENT Reports moist mucous membranes Negative for trauma Eyes PERRL and EOMs intact bilaterally General Eye ED: Negative for pale conjunctiva Neck no lymphadenopathy Chest Wall inspection of chest normal Resp normal respiratory effort and clear to auscultation bilaterally Auscultation: Negative for rales, rhonchi or wheezes Cardio regular rate and regular rhythm Extremity normal to inspection Neuro oriented x3 and CN's II-XII intact bilaterally Sensorium / Orientation: alert Motor Exam: strength 5/5 throughout Psych mental status grossly normal Skin no rashes or lesions noted General Skin Exam: Negative for jaundice or pallor MDM MDM MDM Narrative Medical decision making narrative: Patient presenting after syncopal episode. She had recent surgery. She denies have any abdominal pain and she has not had any more vaginal bleeding. Differential includes postop infection, dehydration, anemia, electrolyte abnormalities, ACS, dysrhythmia, pneumonia, PE. Patient's mother states that she had DVTs and PEs and so to the mother. She has 2 other family members that have had blood clots as well. It runs in her family. I do not think a D-dimer is going to be helpful because she just had surgery. CBC was obtained to assess white blood cell count, hemoglobin, platelets. BMP to assess renal function, electrolytes, glucose. High-sensitivity troponin and EKG to assess for ischemia/dysrhythmia. EKG on my interpretation shows a sinus rhythm at 75 bpm without sign of ischemic change. High-sensitivity troponin is 4. CBC shows white blood cell count at 9.6. Hemoglobin 8.9 and near her baseline. Platelet count 357. Electrolytes are normal. Renal functions normal. There was a lot of difficulty getting IV access on the patient and she had stated that she did not want any more attempts for IV because she was done being poked. After discussion with she and her mother about the possibility of blood clot especially with a family history of blood clots she is amenable to attempting IV access again. CTA of the chest was performed and does not show any evidence of dissection, PE, acute abnormality. CT of the abdomen pelvis with IV contrast also shows nothing acute. On reevaluation the patient states she feels well. She was given some IV fluids. She does have anemia but it is not much worse. She states she will follow-up with her PCP. Impression: 1. Syncope 2. Anemia Lab Data Labs: Laboratory Results - last 24 hr 04/02/24 12:03 WBC 9.6 RBC 3.53 L Hgb 8.9 L Hct 30.1 L MCV 85.3 MCH 25.2 L MCHC 29.6 L RDW Std Deviation 53.1 H RDW Coeff of Shana 17.3 H Plt Count 357 MPV 10.9 Immature Gran % (Auto) 0.500 Neut % (Auto) 75.7 H Lymph % (Auto) 17.6 L Hitchcock % (Auto) 5.1 Eos % (Auto) 0.9 Baso % (Auto) 0.2 Absolute Neuts (auto) 7.2 Absolute Lymphs (auto) 1.68 Nucleated RBC % 0 Sodium 138 Potassium 4.0 Chloride 110 H Carbon Dioxide 24.0 Anion Gap 4 L BUN 8 Creatinine 0.54 L Estim Creat Clear Calc 241.40 Est GFR (MDRD) Af Amer 167 Est GFR (MDRD) Non-Af 138 BUN/Creatinine Ratio 14.8 Glucose 100 Calcium 9.0 Troponin I High Sens 4 Radiography Diagnostic Testing: Clinical Impression(s) from Imaging Studies Chest CTA 04/02/24 11:02 IMPRESSION: Normal CTA chest examination, without a demonstrated pulmonary embolism or arterial dissection. Electronically Signed: Ramu Gamez MD at 14:42 EDT , Abdomen/Pelvis CT 04/02/24 11:07 IMPRESSION: Status post hysterectomy. Status post cholecystectomy. No acute abnormality is seen. Electronically Signed: Ramu Gamez MD at 14:39 EDT , Discharge Plan Triage Chief Complaint: Syncope ED Provider: Rogelio Coburn Dx/Rx/DC Orders Instructions: ED Anemia, Type Not Specified (Adult), ED Fainting, Uncertain Cause Prescriptions: No Action cephalexin 500 mg capsule PO Patient Comments: Take 1 capsule (500 mg) by mouth 2 times daily for 7 days. Primary Care Provider: Roosevelt Knight Referrals: Roosevelt Knight MD [Primary Care Provider] - Disposition Disposition: Home, Self Care
--- NOTE | 2024-04-02 11:07 | CT_ITS ---
STUDY: CT ABDOMEN AND PELVIS WITH CONTRAST REASON FOR EXAM: Female, 33 years old. Status post hysterectomy one week ago. Dizziness and syncope. RADIATION DOSAGE (If Supplied By Facility): CTDIvol = ( 16.64 ) mGy, DLP = ( 1662.01 ) mGycm TECHNIQUE: Transaxial images were obtained from the dome of the diaphragm to the symphysis pubis without oral contrast. IV 100mL Isovue-370 was administered. Sagittal and coronal images were reconstructed. Individualized dose optimization techniques were used for this CT. COMPARISON: None. FINDINGS: The visualized lung bases are unremarkable. The visualized portions of the heart are within normal limits. Normal liver. There are surgical clips in the gallbladder fossa consistent with a prior cholecystectomy. Normal spleen. Normal pancreas. Normal bilateral adrenal glands. Normal right kidney. Normal left kidney. Normal visualized stomach. Normal small intestine. Normal colon. The appendix is visualized and appears normal. Small lymph nodes are seen within the mesenteric fat in the right lower quadrant suggestive of mesenteric adenitis. Normal abdominal aorta. Normal inferior vena cava. Normal retroperitoneum. Normal urinary bladder. There is absence of the uterus consistent with a prior hysterectomy. Phleboliths are seen in the pelvis. Normal abdominal wall. There are mild degenerative changes of the visualized lumbar spine. CT/Abdomen/Pelvis W IV Cont ONLY IMPRESSION: Status post hysterectomy. Status post cholecystectomy. No acute abnormality is seen. Electronically Signed: aRmu Gamez MD at 14:39 EDT ,
[2024-04-02 11:26] VITALS: BP 148/74; PULSE 79; RESP 19; TEMP 36.9; O2SAT 99
[2024-04-02 12:10] LABS: Absolute Lymphocyte Count 1.68 X10^3/uL (0.83-4.51); Absolute Neutrophil Count 7.2 X10^3/uL (2.0-7.7); Basophil# 0.02 X10^3/uL; Basophil% 0.2 % (0-1); Eosinophil# 0.09 X10^3/uL; Eosinophils% 0.9 % (0-5); Hematocrit 30.1 % (37-47); Hemoglobin 8.9 g/dL (12.0-15.0); Lymphocyte # 1.68 X10^3/ul (0.83-4.51); Lymphocyte % 17.6 % (19-41); Mean Corp Hgb Conc 29.6 g/dL (32-36); Mean Corpuscular Hgb 25.2 pg (27.0-32.0); Mean Corpuscular Volume 85.3 fL (81-99); Mean Platelet Vol. 10.9 fl (6.2-12.0); Monocyte# 0.49 X10^3/uL; Monocyte% 5.1 % (0-10); NRBC Flagged by Analyzer 0 % (0-5); Neutrophil # 7.23 X10^3/uL (2.7-7.7); Neutrophil % 75.7 % (47-70); Platelet Count 357 K/mm3 (150-450); RBC Distribution Width CV 17.3 % (11.6-14.6); RBC Distribution Width SD 53.1 fl (35.1-43.9); Red Blood Count 3.53 M/mm3 (4.2-5.4); White Blood Count 9.6 K/mm3 (4.4-11.0)
[2024-04-02 12:24] LABS: Anion Gap 4 (5-15); BUN 8 mg/dL (7-18); BUN/Creat Ratio 14.8 RATIO (10-20); Chloride 110 mmol/L (98-107); Creatinine, Serum 0.54 mg/dL (0.55-1.02); EST Glomerular Filtration Rate 138 mL/min (>60); Est Glom Filt Rate - Afr Amer 167 mL/min (>60); Glucose 100 mg/dL (74-106); Sodium Level 138 mmol/L (136-145); Troponin-I HS (w/2H Reflex) 4 pg/mL (3.0-54.0)
[2024-04-02 12:28] VITALS: BP 134/75; PULSE 75; RESP 16; O2SAT 99
[2024-04-02 14:00] VITALS: BP 122/85; PULSE 82; RESP 15; O2SAT 100
[2024-04-02 14:06] LABS: Reflex Troponin-HS? (from REC) Y
[2024-04-02 15:17] VITALS: BP 132/80; PULSE 78; RESP 16; TEMP 36.9; O2SAT 99
--- NOTE | 2024-04-02 15:26 | ED.RN ---
multiple attempts by Jesenia RN and Kate RN to obtain IV access. ANNITA Nichols attempted to gain IV access with ultrasound assistance, however was unsuccessful. Patient refusing IV after these attempts, however Dr. Coburn talked to patient and patient agreeable to try again with ultrasound assistance. Malaika successfully obtained IV access and patient obtained CT scans with IV contrast. After contrast given, IV is burning. This RN attempted to administer fluids, however patient unable to tolerate burning and fluids discontinued. Per Dr. Coburn, okay to discharge patient without receiving IV fluids.
== END 2024-04-02 15:18 | disposition home or self-care (01) ==
PROVIDERS: Emergency Provider Student in an Organized Health Care Education/Training Program; PCP Family Medicine; Visit Provider Student in an Organized Health Care Education/Training Program
DX: R55 Syncope and collapse (principal); D64.9 Anemia, unspecified; R06.02 Shortness of breath; Z90.710 Acquired absence of both cervix and uterus; Z90.49 Acquired absence of other specified parts of digestive tract
CPT/HCPCS: 71275; 74177; 80048; 84484; 85025; 93005; 99284; J7030; Q9967; A4216

== ENCOUNTER 2025-09-27 21:24 | Emergency (ER) | payer SELFPAY ==
[2025-09-27 21:24] VITALS: BP 153/86; PULSE 102; RESP 16; TEMP 37.1; O2SAT 100; BMI 44.6
[2025-09-27 21:28] VITALS: BP 150/93; PULSE 91; RESP 16; TEMP 37.1; O2SAT 99
--- NOTE | 2025-09-27 22:18 | ED.VIS.GI ---
HPI HPI - GI History of Present Illness Chief Complaint: Nausea/Vomiting/Diarrhea Narrative Narrative: 35-year-old female presents with nausea, vomiting, and diarrhea that began approximately 6 hours ago when she was at home. She states her entire family is sick with the same type of symptoms. She denies any fevers or chills. She started feeling nauseated at around 4 PM. She took a leftover Zofran that she had when she had hyperemesis gravidarum remotely. It worked for about an hour and then she started having the beginnings of her 6 episodes of nausea and vomiting. She denies any hematemesis. She states that she was also having diarrhea and watery stool at the same time during episodes of vomiting. She denies any recent antibiotic use. Past surgical history does include cholecystectomy as well as hysterectomy. She denies any blood in her stool as well. No exacerbating or alleviating factors. No true abdominal pain. PFSH PFS Medical History Palpitations delivery delivered Anemia Pregestational diabetes mellitus, modified White class B Mitral valve prolapse Exercise-induced asthma Home Medications ?Medication ?Instructions ?Recorded ?Last Taken ?Type ondansetron 8 mg disintegrating 8 mg PO Q8H PRN nausea and 09/27/25 Unknown Rx tablet vomiting 4 days #12 tabs Allergy/AdvReac Type Severity Reaction Status Date / Time Sulfa (Sulfonamide Allergy Other Verified 09/27/25 21:25 Antibiotics) clindamycin AdvReac Mild RAPID Verified 09/27/25 21:25 HEART RATE amoxicillin (From Augmentin) AdvReac Vomiting Verified 09/27/25 21:25 clavulanic acid (From AdvReac Vomiting Verified 09/27/25 21:25 Augmentin) nitrofurantoin (From AdvReac Vomiting Verified 09/27/25 21:25 Macrobid) Family History Mother Bleeding disorder lupus anticoagulation Other CAD (coronary artery disease) Surgical History History of adenoidectomy Hx of cholecystectomy History of tonsillectomy Social History adopted: No housing: house number of children: 1 current occupational status: unemployed current occupation: [employer] current occupational exposures/hazards: No 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 No fevers or chills. Positive sick contacts with family having similar symptoms. Symptoms began today at 4 PM, approximately 6 hours ago. 6 episodes of bilious vomiting. Positive watery stool. Complains of dry mouth. EXAM Physical Exam Narrative Exam Narrative: Afebrile. Vital signs noted. Nontoxic-appearing. Cardiovascular examination reveals regular rate and rhythm. Lungs are clear to auscultation bilaterally. Abdomen is soft and nontender without guarding or rebound. Positive bowel sounds. Neurological examination nonfocal, nonlateralizing. Const Vital Signs: 09/27/25 21:24 09/27/25 21:28 09/27/25 23:16 Temperature 98.7 F 98.7 F 98.5 F Temperature Source Oral Oral Oral Pulse Rate 102 H 91 Respiratory Rate 16 16 Blood Pressure 153/86 H 150/93 H Blood Pressure Mean 108 112 Pulse Ox 100 99 Oxygen Delivery Method Room Air Room Air 09/27/25 23:45 Temperature 98.5 F Temperature Source Pulse Rate 89 Respiratory Rate 16 Blood Pressure 117/69 Blood Pressure Mean 85 Pulse Ox 100 Oxygen Delivery Method MDM MDM MDM Narrative Medical decision making narrative: Differential diagnosis includes but not limited to gastroenteritis versus pancreatitis. I have low suspicion for colitis or diverticulitis because history and physical does not support this. Additionally, I do not feel that she has a bowel obstruction. Patient will be administered IV Zofran as well as a bolus of normal saline. CBC, CMP, and lipase will be obtained. I do not feel she requires CT imaging or x-ray at this time. I reviewed her laboratory work and she has slight leukocytosis of 14.4 which I think may be demargination from her vomiting. Hemoglobin 12.5 with hematocrit 39.0. Platelet count normal at 256. Electrolyte panel is grossly unremarkable, no dehydration with a glucose of 178 and anion gap normal at 12, BUN normal at 12 with creatinine 0.69. Normal sodium of 140. Lipase is normal at 27 so I doubt pancreatitis. Additionally she has had prior cholecystectomy. While her urinalysis was pending, she was reexamined. She states she has not vomited but her nausea is returning. She will be administered Zofran 4 mg repeat dose and Bentyl 20 mg IM. Macro analysis of her urine shows ketones at 50 with negative nitrites. I do not feel that she would necessarily need any antibiotics for a UTI unless she had a large amount of WBCs on microanalysis. Upon review of the microanalysis there is 0-5 WBCs. Additionally there are 10-25 squamous epithelial cells so I feel this is probably more of a contaminated specimen and that antibiotics are not indicated. At this point in time, she was written a prescription for twelve 8 mg Zofran ODT's. I feel that she could be discharged to follow-up with her primary care provider. I do not feel that she requires observation for continued IV fluids as there is no significant dehydration. Return instructions to the emergency department were reviewed. Disposition is discharged home in stable condition. History & Record Review Discussion w/independent historian: Patient Additional record(s) reviewed:: Prior ED visit (Last ED visit 2023) Lab Data Attestation: I reviewed the patient's lab results. Labs: Laboratory Results - last 24 hr 09/27/25 09/27/25 22:20 23:13 WBC 14.4 H RBC 4.69 Hgb 12.5 Hct 39.0 MCV 83.2 MCH 26.7 L MCHC 32.1 RDW Std Deviation 42.8 RDW Coeff of Shana 14.4 Plt Count 256 MPV 11.0 Immature Gran % (Auto) 0.300 Neut % (Auto) 93.2 H Lymph % (Auto) 3.1 L [place] % (Auto) 3.0 Eos % (Auto) 0.3 Baso % (Auto) 0.1 Absolute Neuts (auto) 13.4 H Absolute Lymphs (auto) 0.45 L Nucleated RBC % 0 Sodium 140 Potassium 4.1 Chloride 104 Carbon Dioxide 24.1 Anion Gap 12 BUN 12 Creatinine 0.69 L Estim Creat Clear Calc 150.38 Est GFR (MDRD) Non-Af 117 BUN/Creatinine Ratio 17.8 Glucose 178 H Calcium 9.4 Total Bilirubin 0.62 AST 21 ALT 21 Alkaline Phosphatase 74 Total Protein 7.7 Albumin 4.4 Globulin 3.3 Albumin/Globulin Ratio 1.3 Lipase 27 Urine Color Yellow Urine Clarity Sl. Cloudy Urine pH 5.0 Ur Specific Carmine 1.025 Urine Protein 30 H Urine Glucose (UA) Normal Urine Ketones 50 H Urine Occult Blood Negative Urine Nitrite Negative Urine Bilirubin Negative Urine Urobilinogen Normal Ur Leukocyte Esterase 25 H Urine RBC 0 SEEN Urine WBC 0-5 SEEN Ur Squamous Epith Cells 10-25 SEEN Urine Bacteria 2+ Urine Mucus 3+ Discharge Plan Triage Chief Complaint: Nausea/Vomiting/Diarrhea ED Provider: Darryn Joaquin Dx/Rx/DC Orders Clinical Impression: Nausea, vomiting, and diarrhea, Abdominal cramping Instructions: ED Abdominal Pain Unkn Cause Fem, ED Diet Vomiting Diarrhea, ED Gastroenteritis, Viral (Adult) Prescriptions: New ondansetron 8 mg tablet,disintegrating 8 mg PO Q8H PRN (Reason: nausea and vomiting) 4 Days Qty: 12 0RF Primary Care Provider: Roosevelt Knight Referrals: Roosevelt Knight MD [Primary Care Provider, Family Practice] - 3-5 Days if not improving Activity Restrictions/Additional Instructions: Return to the emergency department with fever, increased pain, new or worsening symptoms. Zofran ODT's as directed. Drink plenty of oral fluids. Give your stomach a rest tonight and start a clear liquid diet in the morning. Advance as tolerated. Print Language: Macedonian Disposition Disposition: Home, Self Care
[2025-09-27] MEDS: 0.9% Normal Saline (1000mL) 1,000 ML 999 ML IV (22:22)
[2025-09-27 22:42] LABS: Hematocrit 39.0 % (37-47); Hemoglobin 12.5 g/dL (12.0-15.0); Immature Granulocytes Count 0.040 X10^3/uL (0.0-0.0); Mean Corp Hgb Conc 32.1 g/dL (32-36); Mean Corpuscular Volume 83.2 fL (81-99); Mean Platelet Vol. 11.0 fl (6.2-12.0); NRBC Flagged by Analyzer 0 % (0-5); POSITIVE DIFFERENTIAL YES; Platelet Count 256 K/mm3 (150-450); RBC Distribution Width CV 14.4 % (11.6-14.6); RBC Distribution Width SD 42.8 fl (35.1-43.9); Red Blood Count 4.69 M/mm3 (4.2-5.4); White Blood Count 14.4 K/mm3 (4.4-11.0)
[2025-09-27 22:57] LABS: Lipase 27 U/L (13-75)
[2025-09-27 22:58] LABS: AST(SGOT) 21 U/L (<=31); Alanine Aminotransfer ALT/SGPT 21 U/L (<=34); Albumin, Serum 4.4 g/dL (3.5-5.0); Alkaline Phosphatase 74 U/L (35-104); Anion Gap 12 (5-15); BUN 12 mg/dL (4-19); BUN/Creat Ratio 17.8 RATIO (10-20); Calcium,Total 9.4 mg/dL (7.6-11.0); Carbon Dioxide 24.1 mmol/L (21.0-32.0); Chloride 104 mmol/L (98-108); Estimated Creatinine Clearance 150.38 ml/min (50-250); Globulin 3.3 g/dL (2.2-4.2); Glucose 178 mg/dL (70-99); Potassium 4.1 mmol/L (3.3-5.1)
[2025-09-27 23:16] VITALS: TEMP 36.9
[2025-09-27 23:19] LABS: Red Blood Cells-Urine 0 SEEN /hpf (0-5)
[2025-09-27 23:26] LABS: Color, Urine Yellow (Yellow); Glucose, Dipstick Normal (Normal); Ketone-Dipstick 50 mg/dl (Negative); Leukocyte Esterase-Dipstick 25 /ul (Negative); Nitrite-Dipstick Negative (Negative); Occult Blood-Urine Negative /ul (Negative); Protein-Dipstick 30 mg/dl (Negative); Specific Gravity, Urine 1.025 (1.002-1.030); Urine Bilirubin Dipstick Negative (Negative)
[2025-09-27 23:40] LABS: Squamous Epithelial Cells - UA 10-25 SEEN /hpf (5-10)
[2025-09-27 23:41] LABS: Mucous, Urine 3+ /hpf (<or=2+)
[2025-09-27 23:45] VITALS: BP 117/69; PULSE 89; RESP 16; TEMP 36.9; O2SAT 100
== END 2025-09-28 00:03 | disposition home or self-care (01) ==
PROVIDERS: Emergency Provider Emergency Medicine; PCP Family Medicine; Visit Provider Emergency Medicine
DX: R11.2 Nausea with vomiting, unspecified (principal); R19.7 Diarrhea, unspecified; R10.9 Unspecified abdominal pain; Z90.710 Acquired absence of both cervix and uterus; Z90.49 Acquired absence of other specified parts of digestive tract
CPT/HCPCS: 80053; 81001; 83690; 85025; 96361; 96372; 96374; 96376; 99283; J2405